=== PATIENT | male | born 1965 | race Two or more races ===

== ENCOUNTER 2024-07-31 08:28 | Inpatient (IN) | payer OTHER ==
[~2024-07-31] VITALS: Ht 185.4 cm; Wt 168.4 kg
[2024-07-31 10:27] LABS: Basophils # (auto) 0.1 10 ^3/uL (0-0.2); Basophils % (auto) 0.6 % (0.0-2.0); Eosinophils # (auto) 0.2 10 ^3/uL (0-0.8); Monocytes # (auto) 0.5 10 ^3/uL (0-1.3)
[2024-07-31 10:29] LABS: Eosinophils % (auto) 1.6 % (0.0-7.0); Hematocrit 36.3 % (41.0-53.0); Hemoglobin 11.8 g/dL (13.5-17.5); Lymphocytes # (auto) 1.9 10 ^3/uL (0.4-5.4); Lymphocytes % (auto) 19.6 % (10.0-50.0); Mean Corpuscular Hgb Conc. 32.6 g/dL (32.0-36.0); Mean Corpuscular Volume 79.8 fL (80.0-100.0); Monocytes % (auto) 4.8 % (0.0-12.0); Neutrophils # (auto) 7.1 10 ^3/uL (1.6-8.6); Neutrophils % (auto) 73.4 % (37.0-80.0); Platelet Count (auto) 439 10^3/uL (140-450); Red Blood Cells 4.54 10^6/uL (4.5-5.90); Red Cell Distribution Width 16.8 % (11.8-14.3); White Blood Cell 9.7 10^3/uL (4.4-10.8)
[2024-07-31 10:38] LABS: Calcium 9.5 mg/dL (8.7-10.4); Carbon Dioxide 23 mmol/L (20-31)
[2024-07-31 10:43] LABS: BUN/Creatinine Ratio 5.9 (10.0-20.0); Blood Urea Nitrogen 7 mg/dL (9-23); Glucose 115 mg/dL (74-106)
[2024-07-31] MEDS: CLINDAMYCIN 600MG IV 50 ML IV ONE (10:50)
[2024-07-31 11:00] VITALS: O2SAT 97
[2024-07-31 11:21] LABS: Anion Gap 9 (5-15); Chloride 110 mmol/L (98-107); Potassium 3.7 mmol/L (3.5-5.1); Sodium 142 mmol/L (136-145)
[2024-07-31] MEDS: PIPERACILLIN-TAZOB 3.375GM 100 ML IV ONE (11:30)
[2024-07-31] MEDS ORDERED: VANCOMYCIN PER PHARMACY 0 MG IV SCH (13:30)
[2024-07-31] MEDS ORDERED: ACETAMINOPHEN 325 MG TAB PO PRN (13:30)
[2024-07-31] MEDS ORDERED: PIPERACILLIN-TAZOB 3.375GM 100 ML IV SCH (13:30)
[2024-07-31] MEDS: HYDROmorphone HCL 2 MG/ML VL/or syr IV PRN (13:58)
[2024-07-31] MEDS: SODIUM CHLOR 0.9% PF (SALINE LOCK) 10ML VIAL/SYR IV SCH (14:05)
[2024-07-31] MEDS: ONDANSETRON HCL 4 MG/2 ML VIAL IV PRN (14:07)
[2024-07-31] MEDS: VANCOMYCIN 1GM/200ML PREMIX 200 ML IV SCH (14:44)
[2024-07-31] MEDS: MORPHINE SULFATE 4 MG/ML SYR/VIAL IV PRN (15:35)
[2024-07-31 15:46] LABS: Erythrocyte Sedimentation Rate 37 mm/hr (0-20)
[2024-07-31] MEDS: PIPERACILLIN-TAZOB 3.375GM 100 ML IV SCH (18:23)
[2024-07-31 22:00] VITALS: BP 117/52; PULSE 83; RESP 20; TEMP 98.1; O2SAT 95
[2024-08-01] VITALS (7 sets, daily range): BP systolic 135–148; BP diastolic 66–81; PULSE 78–91; RESP 18–21; TEMP 97.3–98; O2SAT 90–97
[2024-08-01] MEDS: VANCOMYCIN 1GM/200ML PREMIX 200 ML IV SCH (00:32)
[2024-08-01] MEDS ORDERED: HYDR-4072 PO (04:11)
[2024-08-01] MEDS ORDERED: METF-372 PO (04:11)
[2024-08-01] MEDS ORDERED: PROM25TA10 PO (04:11)
[2024-08-01] MEDS ORDERED: ATOR-507 PO (04:11)
[2024-08-01] MEDS ORDERED: TOPI25TA43 PO (04:11)
[2024-08-01] MEDS ORDERED: PROP80CA40 PO (04:11)
[2024-08-01] MEDS ORDERED: TAMS0.4C39 PO (04:13)
[2024-08-01] MEDS: PANTOPRAZOLE 40 MG/10 ML VIAL INJ IV SCH (09:09)
[2024-08-01] MEDS ORDERED: DEXTROSE (50%) 50ML SYRG IV PRN (09:30)
[2024-08-01] MEDS: HYDROcodone-ACET 5/325MG TAB PO PRN (09:32)
[2024-08-01 10:32] LABS: Urine Bacteria None Seen /hpf (None Seen); Urine WBC None Seen /hpf (0 - 3)
[2024-08-01 10:49] LABS: Urine Blood Negative /uL (Negative); Urine Clarity Clear (Clear); Urine Color Light-Yellow (Yellow); Urine Mucus FEW (None Seen); Urine Protein, UAD Negative (Negative); Urine Specific Gravity 1.013 (1.001-1.035); Urine Urobilinogen Normal (Negative); Urine pH 5.5 (5.0-9.0)
[2024-08-01 10:53] LABS: Amphetamine Screen, Urine Neg (NEGATIVE); Barbiturate Scree,Urine Neg (NEGATIVE); Benzodiazephine Screen, Urine Neg (NEGATIVE); Cocaine Screen, Urine Neg (NEGATIVE); Opiate Scree,Urine Neg (NEGATIVE)
[2024-08-01 10:54] LABS: Cannabinoid Screen, Urine Neg (NEGATIVE); Phencyclidine Screen, Urine Neg (NEGATIVE)
[2024-08-01 11:11] LABS: Basophils # (auto) 0.1 10 ^3/uL (0-0.2); Basophils % (auto) 0.8 % (0.0-2.0); Eosinophils # (auto) 0.2 10 ^3/uL (0-0.8); Hematocrit 36.9 % (41.0-53.0); Hemoglobin 12.2 g/dL (13.5-17.5); Lymphocytes % (auto) 20.2 % (10.0-50.0); Mean Corpuscular Hemoglobin 26.6 pg (28.0-32.0); Mean Corpuscular Hgb Conc. 33.1 g/dL (32.0-36.0); Mean Corpuscular Volume 80.4 fL (80.0-100.0); Monocytes # (auto) 0.6 10 ^3/uL (0-1.3); Monocytes % (auto) 6.5 % (0.0-12.0); Neutrophils % (auto) 70.5 % (37.0-80.0); Platelet Count (auto) 419 10^3/uL (140-450); Red Blood Cells 4.59 10^6/uL (4.5-5.90); Red Cell Distribution Width 16.8 % (11.8-14.3)
[2024-08-01 11:19] LABS: INR 1.12 (0.9-1.15); Partial Thromboplastin Time 31.2 SEC (24.5-34.5); Prothrombin Time 11.8 sec (9.3-11.8)
[2024-08-01 11:27] LABS: Alanine Aminotransferase 33 U/L (7-40); Albumin 4.4 g/dL (3.2-4.8); Alkaline Phosphatase 150 U/L (46-116); Anion Gap 10 (5-15); Aspartate Aminotransferase 19 U/L (13-40); BUN/Creatinine Ratio 6.3 (10.0-20.0); Bilirubin, Direct 0.3 mg/dL (<0.3); Bilirubin, Total 0.9 mg/dL (0.2-1.0); Blood Urea Nitrogen 8 mg/dL (9-23); Calcium 9.8 mg/dL (8.7-10.4); Carbon Dioxide 24 mmol/L (20-31); Chloride 109 mmol/L (98-107); Glucose 121 mg/dL (74-106); Potassium 3.8 mmol/L (3.5-5.1); Sodium 143 mmol/L (136-145)
[2024-08-01] MEDS: CLINDAMYCIN 600MG IV 50 ML IV SCH (11:39)
[2024-08-01] MEDS: POTASSIUM EFFERVESENT TAB 25 MEQ PO ONE (11:40)
[2024-08-01] MEDS: InsuLIN REG 1unit/0.01ml Soln (100units/ml) SC SCH (11:51)
[2024-08-01] MEDS ORDERED: hydrALAZINE HCL 20 MG/ML VL IV PRN (12:00)
[2024-08-01] MEDS: ACCU-CHEK COMFORT CURVE STRIP VI SCH (12:00)
[2024-08-01] MEDS ORDERED: VANCOMYCIN PER PHARMACY 0 MG IV SCH (17:45)
[2024-08-01] MEDS: TOPIRAMATE 25 MG TAB PO SCH (18:08)
[2024-08-01] MEDS: ENOXAPARIN SOD 40 MG/0.4 ML SYRINGE SC ONE (18:08)
[2024-08-01] MEDS ORDERED: VANCOMYCIN 750mg/150ml 150 ML IV SCH (18:30)
[2024-08-01] MEDS: VANCOMYCIN 750mg/150ml 150 ML IV SCH (20:53)
[2024-08-01] MEDS: TRIAMCINOLONE ACET 0.1% TOPICAL CREAM 15GM TOP SCH (21:42)
[2024-08-01] MEDS: ATORVASTATIN 20 MG TAB PO SCH (21:46)
[2024-08-01] MEDS ORDERED: CEFEPIME 1GM/ 50ML 50 ML IV SCH (22:00)
[2024-08-01] MEDS: CEFEPIME 2GM/50ML NS 50 ML IV SCH (23:04)
[2024-08-02] VITALS (8 sets, daily range): BP systolic 107–131; BP diastolic 56–76; PULSE 84–92; RESP 19–20; TEMP 97.5–98.8; O2SAT 94–98
[2024-08-02] MEDS: DOCUSATE SOD 100 MG CAP PO PRN (00:42)
[2024-08-02] MEDS: ENOXAPARIN SOD 40 MG/0.4 ML SYRINGE SC SCH (09:27)
[2024-08-02] MEDS: PROPRANOLOL HCL 80 MG PO SCH (10:00)
[2024-08-02 10:28] LABS: Chloride 109 mmol/L (98-107); Potassium 4.7 mmol/L (3.5-5.1); Sodium 141 mmol/L (136-145)
[2024-08-02 10:29] LABS: Anion Gap 9 (5-15); Carbon Dioxide 23 mmol/L (20-31)
[2024-08-02 10:30] LABS: Basophils # (auto) 0.1 10 ^3/uL (0-0.2); Calcium 9.4 mg/dL (8.7-10.4); Eosinophils # (auto) 0.3 10 ^3/uL (0-0.8); Eosinophils % (auto) 3.1 % (0.0-7.0); Hemoglobin 12.3 g/dL (13.5-17.5); Lymphocytes # (auto) 1.8 10 ^3/uL (0.4-5.4); Monocytes # (auto) 0.6 10 ^3/uL (0-1.3); Neutrophils # (auto) 7.4 10 ^3/uL (1.6-8.6); White Blood Cell 10.2 10^3/uL (4.4-10.8)
[2024-08-02 10:32] LABS: Basophils % (auto) 0.7 % (0.0-2.0); Hematocrit 37.4 % (41.0-53.0); Mean Corpuscular Hemoglobin 26.6 pg (28.0-32.0); Mean Corpuscular Volume 80.4 fL (80.0-100.0); Monocytes % (auto) 5.7 % (0.0-12.0); Neutrophils % (auto) 72.5 % (37.0-80.0); Platelet Count (auto) 428 10^3/uL (140-450); Red Blood Cells 4.65 10^6/uL (4.5-5.90); Red Cell Distribution Width 16.7 % (11.8-14.3)
[2024-08-02 10:34] LABS: Glucose 136 mg/dL (74-106)
[2024-08-02 10:35] LABS: Blood Urea Nitrogen 9 mg/dL (9-23)
[2024-08-02] MEDS: TAMSULOSIN HYDROCHLORIDE 0.4 MG CAP PO SCH (19:37)
[2024-08-03] VITALS (8 sets, daily range): BP systolic 117–148; BP diastolic 52–78; PULSE 84–94; RESP 17–20; TEMP 97.6–98.4; O2SAT 90–97
[2024-08-03 06:41] LABS: Basophils # (auto) 0.1 10 ^3/uL (0-0.2); Basophils % (auto) 0.6 % (0.0-2.0); Eosinophils # (auto) 0.3 10 ^3/uL (0-0.8); Lymphocytes # (auto) 2.4 10 ^3/uL (0.4-5.4)
[2024-08-03 06:42] LABS: Eosinophils % (auto) 3.2 % (0.0-7.0); Lymphocytes % (auto) 24.8 % (10.0-50.0); Mean Corpuscular Hemoglobin 25.9 pg (28.0-32.0); Mean Corpuscular Hgb Conc. 32.4 g/dL (32.0-36.0); Mean Corpuscular Volume 79.9 fL (80.0-100.0); Monocytes # (auto) 0.7 10 ^3/uL (0-1.3); Monocytes % (auto) 6.9 % (0.0-12.0); Neutrophils # (auto) 6.1 10 ^3/uL (1.6-8.6); Neutrophils % (auto) 64.5 % (37.0-80.0); Platelet Count (auto) 441 10^3/uL (140-450); Red Blood Cells 4.63 10^6/uL (4.5-5.90); Red Cell Distribution Width 17.2 % (11.8-14.3); White Blood Cell 9.5 10^3/uL (4.4-10.8)
[2024-08-03 06:54] LABS: Chloride 108 mmol/L (98-107); Potassium 3.9 mmol/L (3.5-5.1); Sodium 140 mmol/L (136-145)
[2024-08-03 06:55] LABS: Anion Gap 7 (5-15); Calcium 9.6 mg/dL (8.7-10.4); Carbon Dioxide 25 mmol/L (20-31)
[2024-08-03 07:00] LABS: BUN/Creatinine Ratio 7.8 (10.0-20.0); Blood Urea Nitrogen 9 mg/dL (9-23); Glucose 104 mg/dL (74-106); Magnesium 2.2 mg/dL (1.6-2.6)
[2024-08-03] MEDS: IOHEXOL 350 MG/ML 100ML IJ ONE (14:10)
[2024-08-03] MEDS: ACETAMINOPHEN 500 MG TAB PO PRN (14:43)
[2024-08-04] VITALS (7 sets, daily range): BP systolic 116–152; BP diastolic 56–90; PULSE 76–89; RESP 17–20; TEMP 97.6–98; O2SAT 93–98
[2024-08-04] MEDS ORDERED: GABA-1308 PO (15:38)
[2024-08-04] MEDS ORDERED: BACDST PO (15:38)
[2024-08-04] MEDS ORDERED: ACET650T12 PO (15:38)
[2024-08-04] MEDS ORDERED: VANCOMYCIN 500 MG in D5W 5% 100 ML IV SCH (20:00)
== END 2024-08-04 17:55 | disposition home health service (06) | DRG 638 ==
LOC: ER 08:28 → OVERFLOW 13:26 → EAST 08-01 03:10
PROVIDERS: ADMIT Internal Medicine; ATTEND Internal Medicine
DX: E11.621 Type 2 diabetes mellitus with foot ulcer (principal); L03.115 Cellulitis of right lower limb; Z68.42 Body mass index [BMI] 45.0-49.9, adult; E11.628 Type 2 diabetes mellitus with other skin complications; E78.5 Hyperlipidemia, unspecified; E11.22 Type 2 diabetes mellitus with diabetic chronic kidney disease; N18.9 Chronic kidney disease, unspecified; I12.9 Hypertensive chronic kidney disease with stage 1 through stage 4 chronic kidney disease, or unspecified chronic kidney disease; N40.0 Benign prostatic hyperplasia without lower urinary tract symptoms; E66.01 Morbid (severe) obesity due to excess calories; G43.909 Migraine, unspecified, not intractable, without status migrainosus; G47.33 Obstructive sleep apnea (adult) (pediatric); M79.3 Panniculitis, unspecified; L30.8 Other specified dermatitis; I87.2 Venous insufficiency (chronic) (peripheral); L97.519 Non-pressure chronic ulcer of other part of right foot with unspecified severity; Z79.4 Long term (current) use of insulin; Z79.899 Other long term (current) drug therapy
CPT/HCPCS: 36415; 73630; 73700; 73706; 73718; 80048; 80053; 80076; 80202; 80307; 81001; 82043; 82306; 82565; 82607; 82962; 83036; 83735; 83880; 84443; 85025; 85610; 85652; 85730; 86141; 87040; 87077; 87081; 87186; 87205; 93925; 93970; 96365; 96375; 99291; G0378; J0692; J2405; J2470; J2543; J3490; J7060

== ENCOUNTER 2024-08-30 05:26 | Inpatient (IN) | payer OTHER ==
[~2024-08-30] VITALS: Ht 185.4 cm; Wt 165.1 kg
[~2024-08-30 05:26] MED LIST: ACET650T12 PO; ATOR-507 PO; BACDST PO; GABA-1308 PO; HYDR-4072 PO; METF-372 PO; PROM25TA10 PO; PROP80CA40 PO; TAMS0.4C39 PO; TOPI25TA43 PO
[2024-08-30] MEDS: VANCOMYCIN 1GM/200ML PREMIX 200 ML IV ONE (06:15)
--- NOTE | 2024-08-30 06:22 | ED.PDOC ---
History of Present Illness HPI Comments 58Y M with PMHx DM, HLD, sleep apnea, prostate disease, and migraines presents to ED for chief complaint wound check. Pt has rt foot diabetic ulcer and describes pain as stabbing. Pt is also experiencing nausea but is unsure if it is caused by the rt foot pain or his migraines. Pt denies fever, vomiting, and diarrhea. Pt was last discharged from [facility] on 08/04/2024 for dx diabetic foot ulcer with cellulitis. Pt was sent home with home health nurse but the wound is not healing and is now leaking per pt. Pt is an ex-smoker. Pt denies alcohol and illicit drug use. No known allergies. Chief Complaint: Wound Check Time Seen by MD: 06:10 Reviewed Notes: Medications, Allergies Allergies: Coded Allergies: NO KNOWN ALLERGIES (Unverified , 07/31/24) Home Meds Active Scripts Acetaminophen (Acetaminophen Er) 650 Mg Tab, 650 MG PO QIDP PRN for 7 Days, #28 TAB Prov:KETTY MERRITT RESIDENT 08/04/24 Gabapentin (Gabapentin) 100 Mg Cap, 1 CAP PO TID, #90 CAP 2 Refills Prov:KETTY MERRITT RESIDENT 08/04/24 Sulfamethoxazole W/Trimethopri (Bactrim Ds Tablet) 1 Tab Tb, 1 TAB PO BID for 7 Days, #14 TAB Prov:KETTY MERRITT RESIDENT 08/04/24 Reported Medications Tamsulosin Hcl (Tamsulosin Hcl) 0.4 Mg Cap, 0.4 MG PO DAILY, CAP 08/01/24 Promethazine Hcl (Promethazine Hcl) 25 Mg Tab, 25 MG PO PRN for NAUSEA / VOMITING, TAB 08/01/24 Hydrocodone-Acetaminophen (Hydrocodone/Acetaminophen 10-325 mg) 1 Tab Tab, 1 TAB PO BID, TAB 08/01/24 Topiramate (Topamax) 25 Mg Tab, 25 MG PO DAILY, TAB 08/01/24 Propranolol Hcl (Inderal La) 80 Mg Cap, 160 MG PO DAILY, CAP 08/01/24 Atorvastatin Calcium (Lipitor) 40 Mg Tab, 40 MG PO DAILY, TAB 08/01/24 Metformin Hydrochloride (Metformin Hcl) 1,000 Mg Tab, 1000 MG PO DAILY, TAB 08/01/24 Information Source: Patient Mode of Arrival: Ambulatory Severity: Moderate Timing: Months Duration: Since onset Past Medical History PAST MEDICAL HISTORY: DM, High Lipids Past Medical History (Other): sleep apnea, prostate disease, migraines Surgical History: Denies all surgeries Family History Family History: Unknown Social History Smoker: Non-Smoker, Quit Greater Than 1 Year Alcohol: Denies ETOH Use Drugs: Denies Drug Use Lives In: Home Constitutional: denies: chills, diaphoresis, fatigue, fever, malaise, sweats, weakness, others EENTM: denies: blurred vision, double vision, ear bleeding, ear discharge, ear drainage, ear pain, ear ringing, eye pain, eye redness, hearing loss, mouth pain, mouth swelling, nasal discharge, nose bleeding, nose congestion, nose pain, photophobia, tearing, throat pain, throat swelling, voice changes, others Respiratory: denies: cough, hemoptysis, orthopnea, SOB at rest, shortness of breath, SOB with excertion, stridor, wheezing, others Cardiovascular: denies: chest pain, dizzy spells, diaphoresis, Dyspnea on exertion, edema, irregular heart beat, left arm pain, lightheadedness, palpitations, PND, syncope, others Gastrointestinal: reports: nausea; denies: abdomen distended, abdominal pain, blood streaked bowels, constipated, diarrhea, dysphagia, difficulty swallowing, hematemesis, melena, poor appetite, poor fluid intake, rectal bleeding, rectal pain, vomiting, others Genitourinary: denies: burning, dysuria, flank pain, frequency, hematuria, incontinence, penile discharge, penile sore, pain, testicle pain, testicle swelling, urgency, others Neurological: denies: dizziness, fainting, headache, left sided numbness, left sided weakness, numbness, paresthesia, pre-existing deficit, right sided numbness, right sided weakness, seizure, speech problems, tingling, tremors, weakness, others Musculoskeletal: reports: joint pain (rt foot); denies: back pain, gout, joint swelling, muscle pain, muscle stiffness, neck pain, others Integumetry: denies: bruises, change in color, change in hair/nails, dryness, laceration, lesions, lumps, rash, wounds, others Allergic/Immunocompromised: denies: Difficulty Healing, Frequent Infections, Hives, Itching, others Hematologic/Lymphatic: denies: anemia, blood clots, easy bleeding, easy bruising, swollen glands, others Endocrine: denies: excessive hunger, excessive sweating, excessive thirst, excessive urination, flushing, intolerance to cold, intolerance to heat, unexplained weight gain, unexplained weight loss, others Psychiatric: denies: anxiety, bipolar disorder, depression, hopeless, panic disorder, schizophrenia, sleepless, suicidal, others All Other Systems: Reviewed and Negative Physical Exam General Appearance: No Apparent Distress, Normal HEENT: Normal ENT Inspection, Pharynx Normal, TMs Normal Neck: Full Range of Motion, Non-Tender, Normal, Normal Inspection Respiratory: Chest Non-Tender, Lungs Clear, No Accessory Muscle Use, No Respiratory Distress, Normal Breath Sounds Cardiovascular: No Edema, No JVD, No Murmur, No Gallop, Normal Peripheral Pulses, Regular Rate/Rhythm Breast Exam: Deferred Gastrointestinal: No Organomegaly, Non Tender, No Pulsatile Mass, Normal Bowel Sounds, Soft Genitalia: Deferred Pelvic: Deferred Rectal: Deferred Extremities: No calf tenderness, Normal capillary refill, Normal range of motion, Non-tender, No pedal edema Musculoskeletal : Apperance: Normal Neurologic: Alert, 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 Was a procedure done?: No Differential Dx Considerations may include: Cellulitis, osteomyelitis X-Ray, Labs, Meds, VS Vital Signs Date Time Temp Pulse Resp B/P (MAP) Pulse Ox O2 Delivery O2 Flow Rate FiO2 08/30/24 07:23 82 18 94 Room Air* 0 21 08/30/24 07:23 98.7 76 18 142/77 (98) 94 98.7 08/30/24 05:30 97.9 76 18 142/72 (95) 95 Lab Test 08/30/24 06:15 Range/Units White Blood Count 10.0 4.4-10.8 10^3/uL Red Blood Count 4.87 4.5-5.90 10^6/uL Hemoglobin 12.8 L 13.5-17.5 g/dL Hematocrit 39.2 L 41.0-53.0 % Mean Corpuscular Volume 80.5 80.0-100.0 fL Mean Corpuscular Hemoglobin 26.3 L 28.0-32.0 pg Mean Corpuscular Hemoglobin Concent 32.6 32.0-36.0 g/dL Red Cell Distribution Width 17.4 H 11.8-14.3 % Platelet Count 375 140-450 10^3/uL Mean Platelet Volume 7.7 6.9-10.8 fL Neutrophils (%) (Auto) 60.8 37.0-80.0 % Lymphocytes (%) (Auto) 27.1 10.0-50.0 % Monocytes (%) (Auto) 5.8 0.0-12.0 % Eosinophils (%) (Auto) 4.9 0.0-7.0 % Basophils (%) (Auto) 1.4 0.0-2.0 % Neutrophils # (Auto) 6.1 1.6-8.6 10 ^3/uL Lymphocytes # (Auto) 2.7 0.4-5.4 10 ^3/uL Monocytes # (Auto) 0.6 0-1.3 10 ^3/uL Eosinophils # (Auto) 0.5 0-0.8 10 ^3/uL Basophils # (Auto) 0.1 0-0.2 10 ^3/uL Nucleated Red Blood Cells 0.1 % Sodium Level 139 136-145 mmol/L Potassium Level 3.7 3.5-5.1 mmol/L Chloride Level 108 H 98-107 mmol/L Carbon Dioxide Level 20 20-31 mmol/L Anion Gap 11 5-15 Blood Urea Nitrogen 6 L 9-23 mg/dL Creatinine 1.16 0.700-1.30 mg/dL Glomerular Filtration Rate Calc 73 >90 mL/min BUN/Creatinine Ratio 5.2 L 10.0-20.0 Serum Glucose 138 H 74-106 mg/dL Lactic Acid Level 1.8 0.4-2.0 mmol/L Calcium Level 9.5 8.7-10.4 mg/dL [address] [address] Ph: [phone] DIAGNOSTIC IMAGING Diagnostic Imaging Report : [id number] Signed PATIENT: YADI TRINIDAD ACCT: [id number] UNIT: [id number] : 1965 LOC: ER ROOM / BED: / AGE / SEX: 58 / M ADM STATUS: REG ER SERVICE 0 ORDERING PHYSICIAN: RIMA RAMIREZ MD PROCEDURE(s): RFOOT - R FOOT 3 VIEW XRAY REASON: chronic wound with worsening cellulitis ORDER NUMBER(s): [id number], ACCESSION NUMBER(s): [id number] EXAM: XR Right Foot Complete, 3 or More Views CLINICAL INDICATION: chronic wound with worsening cellulitis TECHNIQUE: Frontal, lateral and oblique views of the right foot. COMPARISON: XY R FOOT 3 VIEW XRAY on DOS: 07/31/24 FINDINGS: BONES/JOINTS: Unremarkable. No acute fracture. No dislocation. No osteomyelitis. SOFT TISSUES: Soft tissue swelling. No radiopaque foreign body. OTHER FINDINGS: . . IMPRESSION: No acute fracture. HS:Y ATED BY: STEPHY LAKHANI MD DICTATED DATE/TIME: 08/30/24653 SIGNED BY: STEPHY LAKHANI MD SIGNED DATE/TIME: 08/30/24653 CC: Time of 1ST Reevaluation: 06:40 Reevaluation 1ST: Unchanged Patient Education/Counseling: Diagnosis, Treatment Family Education/Counseling: No Family Present Departure 1 Departure Time of Disposition: 07:41 (Patient with a worsening cellulitis failed outpatient antibiotics and wound care treatment. I reviewed the patient's CBC and BNP which were benign. However a personally reviewed and interpreted patient's foot x-ray and it is not concerning for osteomyelitis at this time. 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 Electronically submitted by Soraya Fox ([email or web address] I personally scribed for RIMA RAMIREZ MD ([email or web address]) on 08/30/24 at 07:08. Electronically submitted by Soraya Fox ([email or web address]). RIMA RAMIREZ MD Aug 30, 2024 06:21
[2024-08-30 06:52] LABS: Basophils # (auto) 0.1 10 ^3/uL (0-0.2); Eosinophils # (auto) 0.5 10 ^3/uL (0-0.8); Monocytes # (auto) 0.6 10 ^3/uL (0-1.3); Neutrophils # (auto) 6.1 10 ^3/uL (1.6-8.6)
[2024-08-30 06:54] LABS: Basophils % (auto) 1.4 % (0.0-2.0); Eosinophils % (auto) 4.9 % (0.0-7.0); Hematocrit 39.2 % (41.0-53.0); Hemoglobin 12.8 g/dL (13.5-17.5); Lymphocytes # (auto) 2.7 10 ^3/uL (0.4-5.4); Lymphocytes % (auto) 27.1 % (10.0-50.0); Mean Corpuscular Hemoglobin 26.3 pg (28.0-32.0); Mean Corpuscular Hgb Conc. 32.6 g/dL (32.0-36.0); Mean Corpuscular Volume 80.5 fL (80.0-100.0); Monocytes % (auto) 5.8 % (0.0-12.0); Neutrophils % (auto) 60.8 % (37.0-80.0); Nucleated Red Blood Cells % 0.1 %; Platelet Count (auto) 375 10^3/uL (140-450); Red Blood Cells 4.87 10^6/uL (4.5-5.90); Red Cell Distribution Width 17.4 % (11.8-14.3)
--- NOTE | 2024-08-30 06:57 | DVH ---
EXAM: XR Right Foot Complete, 3 or More Views CLINICAL INDICATION: chronic wound with worsening cellulitis TECHNIQUE: Frontal, lateral and oblique views of the right foot. COMPARISON: XY R FOOT 3 VIEW XRAY on DOS: 07/31/24 FINDINGS: BONES/JOINTS: Unremarkable. No acute fracture. No dislocation. No osteomyelitis. SOFT TISSUES: Soft tissue swelling. No radiopaque foreign body. OTHER FINDINGS: . . IMPRESSION: No acute fracture. HS:Y
[2024-08-30 07:01] LABS: Potassium 3.7 mmol/L (3.5-5.1); Sodium 139 mmol/L (136-145)
[2024-08-30 07:02] LABS: Anion Gap 11 (5-15); Calcium 9.5 mg/dL (8.7-10.4); Carbon Dioxide 20 mmol/L (20-31)
[2024-08-30 07:07] LABS: BUN/Creatinine Ratio 5.2 (10.0-20.0)
[2024-08-30 07:08] LABS: Blood Urea Nitrogen 6 mg/dL (9-23); Chloride 108 mmol/L (98-107); Glucose 138 mg/dL (74-106)
[2024-08-30 07:23] VITALS: PULSE 82; RESP 18; O2SAT 94
[2024-08-30] MEDS: SODIUM CHLORIDE 0.9% 1,000 ML IV ONE (07:50)
[2024-08-30] MEDS: MORPHINE SULFATE 4 MG/ML SYR/VIAL IV ONE (07:50)
[2024-08-30] MEDS: ONDANSETRON HCL 4 MG/2 ML VIAL IV ONE (07:51)
[2024-08-30] MEDS: SODIUM CHLORIDE 0.9% 1,000 ML IV SCH (10:15)
[2024-08-30] MEDS ORDERED: ACETAMINOPHEN 325 MG TAB PO PRN (10:15)
[2024-08-30] MEDS ORDERED: HYDROcodone-ACET 5/325MG TAB PO PRN (10:15)
[2024-08-30] MEDS ORDERED: MAALOX PLUS or MAALOX 30 ML PO PRN (10:15)
[2024-08-30] MEDS ORDERED: DEXTROSE (50%) 50ML SYRG IV PRN (10:15)
[2024-08-30] MEDS ORDERED: DOCUSATE SOD 100 MG CAP PO PRN (10:15)
[2024-08-30] MEDS ORDERED: VANCOMYCIN PER PHARMACY 0 MG IV SCH (10:15)
[2024-08-30] MEDS ORDERED: LORazepam 0.5 MG TAB PO PRN (10:15)
[2024-08-30] MEDS ORDERED: TEMAZEPAM 15 MG CAP PO PRN (10:15)
--- NOTE | 2024-08-30 10:15 | DVHHP2 ---
History of Present Illness Reason for Visit: diabetic foot ulcer History of Present Illness 58-year-old morbidly obese patient with a past medical history of diabetes hypertension hyperlipidemia diabetes sleep apnea and prostate disease comes to the ED for complaint of wound on his foot patient has a longstanding right foot diabetic ulcer patient states that he is having severe pain in the foot and it continues to get worse the pain has not been alleviated last time the patient was here while in the beginning of August for the same issue for the cellulitis of the diabetic foot wound patient was sent home with home healthcare and supposed to follow up with wound care but states that his wound continues to leak and continues to have pain patient was recommended for evaluation of inpatient treatment and management Cardiovascular: HTN, hyperipidemia Endocrine: Diabetes Review of Systems Constitutional: Yes: Weakness; No: Fever, Chills, Sweats, Malaise, Other Eyes: No: Pain, Vision change, Conjunctivae inflammation, Eyelid inflammation, Other, Redness ENT: No: Ear pain, Ear discharge, Nose pain, Nose discharge, Nose congestion, Mouth pain, Mouth swelling, Throat pain, Throat swelling, Other Respiratory: No: Cough, Dry, Shortness of breath, SOB with excertion, Wheezing, Hemoptysis, Pleuritic Pain, Sputum, Wheezing, Other Cardiovascular: No: Chest Pain, Palpitations, Orthopnea, Paroxysmal Noc. Dyspnea, Edema, Lt Headedness, Other Gastrointestinal: No: Nausea, Vomiting, Abdominal Pain, Diarrhea, Constipation, Melena, Hematochezia, Other Genitourinary: No Dysuria, No Frequency, No Incontinence, No Hematuria, No R etention, No Other Musculoskeletal: leg pain, foot pain; No: other, neck pain, shoulder pain, arm pain, back pain, hand pain Skin: No: Rash, Lesions, Jaundice, Bruising, Other Neurological: No: Weakness, Numbness, Incoordination, Change in speech, Confusion, Seizures, Other Allergies: Coded Allergies: NO KNOWN ALLERGIES (Unverified , 07/31/24) Exam Vital Signs Vital Signs Date Time Temp Pulse Resp B/P (MAP) Pulse Ox O2 Delivery O2 Flow Rate FiO2 08/30/24 08:16 72 18 130/79 08/30/24 07:23 94 Room Air* 0 21 08/30/24 07:23 98.7 98.7 General Appearance: Alert, Oriented X3, Cooperative HEENT: Atraumatic, PERRLA, EOMI Respiratory: Clear to auscultation, Normal air movement Cardiovascular: Regular rate, Normal S1, Normal S2 Abdominal: Normal bowel sounds, Soft, No tenderness Extremities: No clubbing, No cyanosis, No edema Skin: No rashes, No breakdown Neuro: Normal gait, Normal speech Psych/Mental Status: Mood NL Labs/Xrays Labs Test 08/30/24 06:15 Range/Units White Blood Count 10.0 4.4-10.8 10^3/uL Red Blood Count 4.87 4.5-5.90 10^6/uL Hemoglobin 12.8 L 13.5-17.5 g/dL Hematocrit 39.2 L 41.0-53.0 % Mean Corpuscular Volume 80.5 80.0-100.0 fL Mean Corpuscular Hemoglobin 26.3 L 28.0-32.0 pg Mean Corpuscular Hemoglobin Concent 32.6 32.0-36.0 g/dL Red Cell Distribution Width 17.4 H 11.8-14.3 % Platelet Count 375 140-450 10^3/uL Mean Platelet Volume 7.7 6.9-10.8 fL Neutrophils (%) (Auto) 60.8 37.0-80.0 % Lymphocytes (%) (Auto) 27.1 10.0-50.0 % Monocytes (%) (Auto) 5.8 0.0-12.0 % Eosinophils (%) (Auto) 4.9 0.0-7.0 % Basophils (%) (Auto) 1.4 0.0-2.0 % Neutrophils # (Auto) 6.1 1.6-8.6 10 ^3/uL Lymphocytes # (Auto) 2.7 0.4-5.4 10 ^3/uL Monocytes # (Auto) 0.6 0-1.3 10 ^3/uL Eosinophils # (Auto) 0.5 0-0.8 10 ^3/uL Basophils # (Auto) 0.1 0-0.2 10 ^3/uL Nucleated Red Blood Cells 0.1 % Sodium Level 139 136-145 mmol/L Potassium Level 3.7 3.5-5.1 mmol/L Chloride Level 108 H 98-107 mmol/L Carbon Dioxide Level 20 20-31 mmol/L Anion Gap 11 5-15 Blood Urea Nitrogen 6 L 9-23 mg/dL Creatinine 1.16 0.700-1.30 mg/dL Glomerular Filtration Rate Calc 73 >90 mL/min BUN/Creatinine Ratio 5.2 L 10.0-20.0 Serum Glucose 138 H 74-106 mg/dL Lactic Acid Level 1.8 0.4-2.0 mmol/L Calcium Level 9.5 8.7-10.4 mg/dL Assessment/Plan Assessment/Plan Admit to [facility] Diabetic nephropathy uncontrolled with diabetic foot ulcer IV hydration IV antibiotics Tight glucose control Podiatry evaluation History of hyperlipidemia hypertension Continue with patient's home medications Patient is severely morbidly obese BMI greater than 47 Plan discussed with: Patient My Orders Orders - JAEL PRATER MD Procedure Category Date Status Time Vancomycin Per PHA 08/30/24 Verified Pharmacy 10:15 Zosyn Extended PHA 08/30/24 Verified Infusion 10:15 * Wound Consult CONS 08/30/24 Verified *Podiatry Consult CONS 08/30/24 Verified [place] 10:06 Gabapentin Capsule PHA 08/30/24 Verified (Neurontin Capsule) 14:00 Hydrocodone-Acet PHA 08/30/24 Verified 10/325mg Tab ([place] 22:00 Tamsulosin PHA 08/31/24 Verified Hydrochloride (Flomax) 10:00 Problem List: (1) Diabetic foot infection (2) Cellulitis of foot, right (3) Diabetes mellitus (4) Cellulitis Date of Service: Aug 30, 2024 Billing Provider: JAEL PRATER MD Common Visit Codes: [id number] INP/OBS CARE (HIGH) JAEL PRATER MD Aug 30, 2024 10:15
[2024-08-30] MEDS: PIPERACILLIN-TAZOB 3.375GM 100 ML IV SCH (10:58)
[2024-08-30 11:08] VITALS: BP 98/53; PULSE 80; RESP 16; TEMP 98.7; O2SAT 95
[2024-08-30] MEDS: InsuLIN REG 1unit/0.01ml Soln (100units/ml) SC SCH (12:00)
[2024-08-30] MEDS: ACCU-CHEK COMFORT CURVE STRIP VI SCH (12:11)
[2024-08-30] MEDS: GABAPENTIN 100 MG CAP PO SCH (14:27)
[2024-08-30] MEDS: VANCOMYCIN 1GM/200ML PREMIX 200 ML IV SCH (14:28)
[2024-08-30] MEDS: MORPHINE SULFATE INJ 2 MG/ml SYRG IV PRN (14:39)
[2024-08-30] MEDS: ONDANSETRON HCL 4 MG/2 ML VIAL IV PRN (14:40)
[2024-08-30 15:06] VITALS: BP 122/69; PULSE 84; RESP 16; TEMP 98.8; O2SAT 95
[2024-08-30 15:31] VITALS: BP 122/69; PULSE 84; RESP 17; TEMP 98.7; O2SAT 95
[2024-08-30] MEDS: Juven Orange Powder PACKET 27.5gm PO SCH (18:00)
[2024-08-30 18:35] VITALS: BP 119/52; PULSE 74; TEMP 98.7; O2SAT 94
[2024-08-30 20:00] VITALS: PULSE 69; RESP 18; O2SAT 94
[2024-08-30] MEDS: HYDROcodone-ACET 10/325MG TAB PO SCH (22:00)
[2024-08-31 05:48] VITALS: BP 146/68; PULSE 76; RESP 19; TEMP 98.2; O2SAT 95
[2024-08-31] MEDS: GABAPENTIN 300 MG CAP ONE (06:22)
[2024-08-31 07:38] LABS: Basophils # (auto) 0.1 10 ^3/uL (0-0.2); Eosinophils # (auto) 0.6 10 ^3/uL (0-0.8); Eosinophils % (auto) 5.9 % (0.0-7.0); Lymphocytes # (auto) 2.1 10 ^3/uL (0.4-5.4); Monocytes # (auto) 0.7 10 ^3/uL (0-1.3)
[2024-08-31 07:40] LABS: Hemoglobin 12.8 g/dL (13.5-17.5); Lymphocytes % (auto) 21.4 % (10.0-50.0); Mean Corpuscular Hemoglobin 26.3 pg (28.0-32.0); Mean Corpuscular Hgb Conc. 32.8 g/dL (32.0-36.0); Mean Corpuscular Volume 80.2 fL (80.0-100.0); Monocytes % (auto) 7.2 % (0.0-12.0); Neutrophils # (auto) 6.3 10 ^3/uL (1.6-8.6); Neutrophils % (auto) 64.5 % (37.0-80.0); Platelet Count (auto) 368 10^3/uL (140-450); Red Blood Cells 4.86 10^6/uL (4.5-5.90); Red Cell Distribution Width 17.7 % (11.8-14.3); White Blood Cell 9.8 10^3/uL (4.4-10.8)
[2024-08-31 07:48] LABS: Sodium 141 mmol/L (136-145)
[2024-08-31 07:49] LABS: Anion Gap 9 (5-15); Carbon Dioxide 24 mmol/L (20-31)
[2024-08-31 07:50] LABS: Calcium 9.8 mg/dL (8.7-10.4)
[2024-08-31 07:54] LABS: BUN/Creatinine Ratio 7.8 (10.0-20.0)
[2024-08-31 07:59] LABS: Blood Urea Nitrogen 9 mg/dL (9-23); Chloride 108 mmol/L (98-107); Glucose 122 mg/dL (74-106)
[2024-08-31] MEDS: Juven Fruit Punch Powder PACKET 28.8gm PO SCH (08:00)
[2024-08-31] MEDS: TOPIRAMATE 25 MG TAB PO SCH (10:09)
[2024-08-31] MEDS: ATORVASTATIN 20 MG TAB PO SCH (10:09)
[2024-08-31] MEDS: TAMSULOSIN HYDROCHLORIDE 0.4 MG CAP PO SCH (10:09)
--- NOTE | 2024-08-31 13:17 | DVHPN2 ---
Reviewed: Care Plan, H&P, Labs, Medications, Previous Orders, Radiology Changes from previous H/P or p: No Changes Eyes: No Pain, No Vision change, No Conjunctivae inflammation, No Eyelid inflammation, No Other, No Redness ENT: No Ear pain, No Ear discharge, No Nose pain, No Nose discharge, No Nose congestion, No Mouth pain, No Mouth swelling, No Throat pain, No Throat swelling, No Other Cardiovascular: No Chest Pain, No Palpitations, No Orthopnea, No Paroxysmal Noc. Dyspnea, No Edema, No Lt Headedness, No Other Respiratory: No Cough, No Dry, No Shortness of breath, No SOB with excertion, No Wheezing, No Hemoptysis, No Pleuritic Pain, No Sputum, No Other Gastrointestinal: No Nausea, No Vomiting, No Abdominal Pain, No Diarrhea, No Constipation, No Melena, No Hematochezia, No Other Genitourinary: No Dysuria, No Frequency, No Incontinence, No Hematuria, No Retention, No Other Musculoskeletal: No other, No neck pain, No shoulder pain, No arm pain, No back pain, No hand pain; leg pain, foot pain Skin: No Rash, No Lesions, No Jaundice, No Bruising, No Other Objective Vitals Vital Signs Date Time Temp Pulse Resp B/P (MAP) Pulse Ox O2 Delivery O2 Flow Rate FiO2 08/31/24 10:32 86 16 139/75 08/31/24 10:03 97.6 92 97.6 08/30/24 20:26 Room Air 08/30/24 20:00 0 21 Intake/Output Intake and Output 08/31/24 07:00 Intake Total 1500 ml Balance 1500 ml Intake IV Total 1500 ml Medications Current Medications Medications Dose Ordered Sig/Christen Route Start Time Stop Time Status Last Admin Dose Admin Vancomycin HCl 0 ml @ 0 mls/hr UD IV 08/30/24 10:15 Piperacillin Sod/ Tazobactam Sod 100 ml @ 25 mls/hr Q6H IV 08/30/24 11:00 08/31/24 12:10 25 MLS/HR Gabapentin 300 mg TID PO 08/30/24 14:00 08/31/24 06:20 300 MG Acetaminophen/ Hydrocodone Bitart 1 tab BID PO 08/30/24 22:00 Tamsulosin HCl 0.4 mg DAILY PO 08/31/24 10:00 08/31/24 10:09 0.4 MG Topiramate 25 mg DAILY PO 08/31/24 10:00 08/31/24 10:09 25 MG Atorvastatin Calcium 40 mg DAILY PO 08/31/24 10:00 08/31/24 10:09 40 MG Diagnostic Test (Pha) 1 strip IQ4HR 08/30/24 12:00 08/31/24 00:25 1 STRIP Insulin Human Regular IQ4HR SC 08/30/24 12:00 Dextrose 50 ml UD PRN IV 08/30/24 10:15 Sodium Chloride 1,000 ml @ 60 mls/hr [id number] IV 08/30/24 10:15 08/31/24 03:21 60 MLS/HR Lorazepam 0.5 mg Q6HP PRN PO 08/30/24 10:15 Al Hydrox/Mg Hydrox/Simethicone 30 ml Q6HP PRN PO 08/30/24 10:15 Docusate Sodium 100 mg BIDPRN PRN PO 08/30/24 10:15 Acetaminophen 650 mg Q6HP PRN PO 08/30/24 10:15 Temazepam 15 mg QHSP PRN PO 08/30/24 10:15 Acetaminophen/ Hydrocodone Bitart 1 tab Q4HP PRN PO 08/30/24 10:15 Ondansetron HCl 4 mg Q4HP PRN IV 08/30/24 10:15 08/31/24 10:30 4 MG Morphine Sulfate 2 mg Q4HPRN PRN IV 08/30/24 10:15 08/31/24 10:32 2 MG Vancomycin HCl 200 ml @ 200 mls/hr Q8H IV 08/30/24 14:00 08/31/24 05:51 200 MLS/HR Enteral Nutritional Formula 27.5 gm BIDWM PO 08/30/24 18:00 08/30/24 18:00 27.5 GM Enteral Nutritional Formula 28.8 gm BIDWM PO 08/31/24 08:00 Propranolol HCl 80 mg BID PO 08/31/24 22:00 Laboratory Results Laboratory Tests 08/31/24 07:16 Chemistry Test 08/31/24 07:16 Calcium Level 9.8 mg/dL (8.7-10.4) Microbiology Microbiology Date/Time Source Procedure Growth Status 08/31/24 05:20 Nose MRSA Screen - Final Complete 08/30/24 06:30 Blood Blood Culture - Preliminary NO GROWTH AFTER 24 HOURS OF INCUBATION. Resulted Labs and/or images reviewed: Labs reviewed by me, Image(s) reviewed by me Assessment/Plan Assessment/Plan Chronic right foot wound infection: Vancomycin Zosyn consult for Dr. Castellon wound consult Uncontrolled diabetes: Insulin sliding scale Hypertension Diabetic neuropathy nephropathy vasculopathy Hypercholesterolemia History of sleep apnea BPH Time spent 50 minutes Patient is full code Advanced care planning time 20 mts Blood cultures negative Plan discussed with: Patient My Orders Orders - ERROL MARTINEZ MD Procedure Category Date Status Time Propranolol Hcl PHA 08/31/24 In Process Tablet (Inderal 22:00 Date of Service: Aug 31, 2024 Billing Provider: ERROL MARTINEZ MD Common Visit Codes: [id number] INP/OBS CARE(HIGH) Secondary Visit Codes: [id number] CARE PLAN 30 MINUTES ERROL MARTINEZ MD Aug 31, 2024 13:17
[2024-08-31 15:35] VITALS: BP 126/67; PULSE 92; RESP 20; TEMP 97.5; O2SAT 94
[2024-08-31 16:46] VITALS: BP 126/67; PULSE 92; RESP 20; TEMP 97.5; O2SAT 94
[2024-08-31] MEDS: VANCOMYCIN 1GM/200ML PREMIX 200 ML IV SCH (17:07)
[2024-08-31 20:00] VITALS: PULSE 92; RESP 20; O2SAT 95
[2024-08-31 21:00] VITALS: BP 126/82; PULSE 108; RESP 19; TEMP 97.1; O2SAT 89
[2024-08-31] MEDS: PROPRANOLOL HCL 20 MG TAB PO SCH (22:37)
[2024-09-01] VITALS (7 sets, daily range): BP systolic 119–128; BP diastolic 62–74; PULSE 68–92; RESP 16–20; TEMP 97.6–98.8; O2SAT 92–96
--- NOTE | 2024-09-01 13:21 | DVHINCON2 ---
Date Seen: Sep 01, 2024 Reason for Consultation Right foot wound History of Present Illness 58-year-old morbidly obese patient with a past medical history of diabetes hypertension hyperlipidemia diabetes sleep apnea and prostate disease comes to the ED for complaint of wound on his foot patient has a longstanding right foot diabetic ulcer patient states that he is having severe pain in the foot and it continues to get worse the pain has not been alleviated last time the patient was here while in the beginning of August for the same issue for the cellulitis of the diabetic foot wound patient was sent home with home healthcare and supposed to follow up with wound care but states that his wound continues to leak and continues to have pain patient was recommended for evaluation of inpatient treatment and management Past Medical History See H&P Past Surgical History See H&P Allergies: Coded Allergies: NO KNOWN ALLERGIES (Unverified , 07/31/24) Home Meds Active Scripts Gabapentin (Gabapentin) 100 Mg Cap, 1 CAP PO TID, #90 CAP 2 Refills Prov:KETTY MERRITT RESIDENT 08/04/24 Reported Medications Tamsulosin Hcl (Tamsulosin Hcl) 0.4 Mg Cap, 0.4 MG PO DAILY, CAP 08/01/24 Promethazine Hcl (Promethazine Hcl) 25 Mg Tab, 25 MG PO PRN for NAUSEA / VOMITING, TAB 08/01/24 Hydrocodone-Acetaminophen (Hydrocodone/Acetaminophen 10-325 mg) 1 Tab Tab, 1 TAB PO BID, TAB 08/01/24 Topiramate (Topamax) 25 Mg Tab, 25 MG PO DAILY, TAB 08/01/24 Propranolol Hcl (Inderal La) 80 Mg Cap, 160 MG PO DAILY, CAP 08/01/24 Atorvastatin Calcium (Lipitor) 40 Mg Tab, 40 MG PO DAILY, TAB 08/01/24 Metformin Hydrochloride (Metformin Hcl) 1,000 Mg Tab, 1000 MG PO DAILY, TAB 08/01/24 Current Medications Current Medications Medications (Trade) Dose Ordered Sig/Christen Route PRN Reason Start Time Stop Time Status Last Admin Propranolol HCl (Inderal Tablet) 80 mg BID PO 08/31/24 22:00 09/01/24 09:32 Vancomycin HCl 200 ml @ 200 mls/hr Q12H IV 08/31/24 17:00 09/01/24 04:42 Vital Signs Vital Signs Date Time Temp Pulse Resp B/P (MAP) Pulse Ox O2 Delivery O2 Flow Rate FiO2 09/01/24 13:00 97.9 71 16 120/67 (84) 92 97.9 08/31/24 20:00 Room Air* 0 21 Physical Exam DERMATOLOGIC EXAM: - Skin is dry and cool to the touch dry bilaterally. - Nails 1-5 of the bilateral foot are thickened, discolored, dystrophic, and tender to palpate with subungual debris - Hair loss noted to bilateral feet Wound #1: Location: Right dorsal foot Measurements: Length 3 cm x width 2 cm x depth 0.5 cm. Wound margins: Hyperkeratotic. Wound base: Full thickness. General Appearance: Fibrotic Probes to Bone: No Purulent drainage: No Serous drainage: Yes Erythema: Absent VASCULAR EXAM: - DP and PT pulses are palpable bilaterally. - INSURANCE SALES ASSOCIATE is brisk to all digits. - Feet are cool to touch compared to lower legs bilaterally. NEUROLOGIC EXAM: - Normal light touch sensation to the superficial peroneal, deep peroneal, sural, saphenous, and tibial nerve branches. - Protective sensation is diminished as tested with a 5.07 10g [place]-Mily bilaterally. MUSCULOSKELETAL EXAM: - No gross deformities - Muscle strength is 5/5 and active motion is pain-free and symmetrical bilaterally - No pain or crepitation with passive range of motion bilaterally to all major pedal joints Labs/Diagnostic Data Labs Test 09/01/24 07:59 08/31/24 13:30 08/31/24 07:16 08/30/24 06:15 Range/Units POC Glucose 123 H 70-106 mg/dl Vancomycin Level Trough 14.2 H 5-10 ug/mL White Blood Count 9.8 4.4-10.8 10^3/uL Red Blood Count 4.86 4.5-5.90 10^6/uL Hemoglobin 12.8 L 13.5-17.5 g/dL Hematocrit 39.0 L 41.0-53.0 % Mean Corpuscular Volume 80.2 80.0-100.0 fL Mean Corpuscular Hemoglobin 26.3 L 28.0-32.0 pg Mean Corpuscular Hemoglobin Concent 32.8 32.0-36.0 g/dL Red Cell Distribution Width 17.7 H 11.8-14.3 % Platelet Count 368 140-450 10^3/uL Mean Platelet Volume 7.7 6.9-10.8 fL Neutrophils (%) (Auto) 64.5 37.0-80.0 % Lymphocytes (%) (Auto) 21.4 10.0-50.0 % Monocytes (%) (Auto) 7.2 0.0-12.0 % Eosinophils (%) (Auto) 5.9 0.0-7.0 % Basophils (%) (Auto) 1.0 0.0-2.0 % Neutrophils # (Auto) 6.3 1.6-8.6 10 ^3/uL Lymphocytes # (Auto) 2.1 0.4-5.4 10 ^3/uL Monocytes # (Auto) 0.7 0-1.3 10 ^3/uL Eosinophils # (Auto) 0.6 0-0.8 10 ^3/uL Basophils # (Auto) 0.1 0-0.2 10 ^3/uL Nucleated Red Blood Cells 0.0 % Sodium Level 141 136-145 mmol/L Potassium Level 4.0 3.5-5.1 mmol/L Chloride Level 108 H 98-107 mmol/L Carbon Dioxide Level 24 20-31 mmol/L Anion Gap 9 5-15 Blood Urea Nitrogen 9 9-23 mg/dL Creatinine 1.15 0.700-1.30 mg/dL Glomerular Filtration Rate Calc 73 >90 mL/min BUN/Creatinine Ratio 7.8 L 10.0-20.0 Serum Glucose 122 H 74-106 mg/dL Calcium Level 9.8 8.7-10.4 mg/dL Lactic Acid Level 1.8 0.4-2.0 mmol/L Microbiology Date/Time Source Procedure Growth Status 08/31/24 05:20 Nose MRSA Screen - Final Complete 08/30/24 06:30 Blood Blood Culture - Preliminary NO GROWTH AFTER 48 HOURS OF INCUBATION. Resulted Problems(with codes): (1) Diabetes mellitus (2) Cellulitis of foot, right (3) Cellulitis (4) Diabetic foot infection Plan/Recommendation ASSESSMENT: Patient is a 58 year old who was seen on the floor for worsening right foot wound PLAN: - The patients chart was reviewed, clinical findings were discussed with the patient, the etiologies of the conditions were discussed in detail, and a treatment plan was agreed to at this time, with both oral and written instructions provided. - discussed with patient that the wound does not appear to be superficial deep at this point - discussed the fibrotic nature of the wound in the need for debridement, patient will not tolerate sharp debridement - recommend we use Medihoney for enzymatic debridement at this point - wound care continue caring for the wound with Medihoney - patient should follow up as an outpatient to re-evaluate the wound - no surgical intervention needed at this point All questions were answered and concerns addressed to the patient's satisfaction. The patient was given the phone number to the clinic and was told how to make contact with the clinic should any concerns or questions arise. Patient understands that if any questions or concerns arise prior to the next appointment, we should be contacted immediately. FOLLOW-UP: Patient will follow up with me in 1 week for continued wound care Plan discussed with: Patient Date of Service: Sep 01, 2024 Billing Provider: JACINTO BURTON DPM Common Visit Codes: [id number] INP/OBS CARE (MOD) JACINTO BURTON DPM Sep 01, 2024 13:21
--- NOTE | 2024-09-01 13:47 | DVHPN2 ---
Reviewed: Care Plan, H&P, Labs, Medications, Previous Orders, Radiology Changes from previous H/P or p: No Changes Eyes: No Pain, No Vision change, No Conjunctivae inflammation, No Eyelid inflammation, No Other, No Redness ENT: No Ear pain, No Ear discharge, No Nose pain, No Nose discharge, No Nose congestion, No Mouth pain, No Mouth swelling, No Throat pain, No Throat swelling, No Other Cardiovascular: No Chest Pain, No Palpitations, No Orthopnea, No Paroxysmal Noc. Dyspnea, No Edema, No Lt Headedness, No Other Respiratory: No Cough, No Dry, No Shortness of breath, No SOB with excertion, No Wheezing, No Hemoptysis, No Pleuritic Pain, No Sputum, No Other Gastrointestinal: No Nausea, No Vomiting, No Abdominal Pain, No Diarrhea, No Constipation, No Melena, No Hematochezia, No Other Genitourinary: No Dysuria, No Frequency, No Incontinence, No Hematuria, No Retention, No Other Musculoskeletal: No other, No neck pain, No shoulder pain, No arm pain, No back pain, No hand pain; leg pain, foot pain Skin: No Rash, No Lesions, No Jaundice, No Bruising, No Other Objective Vitals Vital Signs Date Time Temp Pulse Resp B/P (MAP) Pulse Ox O2 Delivery O2 Flow Rate FiO2 09/01/24 13:00 97.9 71 16 120/67 (84) 92 97.9 09/01/24 08:00 Room Air* 0 21 Intake/Output Intake and Output 09/01/24 07:00 Intake Total 2000 ml Balance 2000 ml Intake Oral 1200 ml IV Total 800 ml # Voids 4 Medications Current Medications Medications Dose Ordered Sig/Christen Route Start Time Stop Time Status Last Admin Dose Admin Vancomycin HCl 0 ml @ 0 mls/hr UD IV 08/30/24 10:15 Piperacillin Sod/ Tazobactam Sod 100 ml @ 25 mls/hr Q6H IV 08/30/24 11:00 09/01/24 10:27 25 MLS/HR Gabapentin 300 mg TID PO 08/30/24 14:00 08/31/24 23:07 300 MG Acetaminophen/ Hydrocodone Bitart 1 tab BID PO 08/30/24 22:00 08/31/24 22:36 1 TAB Tamsulosin HCl 0.4 mg DAILY PO 08/31/24 10:00 09/01/24 09:32 0.4 MG Topiramate 25 mg DAILY PO 08/31/24 10:00 09/01/24 09:32 25 MG Atorvastatin Calcium 40 mg DAILY PO 08/31/24 10:00 09/01/24 09:32 40 MG Diagnostic Test (Pha) 1 strip IQ4HR 08/30/24 12:00 09/01/24 08:00 1 STRIP Insulin Human Regular IQ4HR SC 08/30/24 12:00 Dextrose 50 ml UD PRN IV 08/30/24 10:15 Sodium Chloride 1,000 ml @ 60 mls/hr [id number] IV 08/30/24 10:15 08/31/24 19:41 60 MLS/HR Lorazepam 0.5 mg Q6HP PRN PO 08/30/24 10:15 Al Hydrox/Mg Hydrox/Simethicone 30 ml Q6HP PRN PO 08/30/24 10:15 Docusate Sodium 100 mg BIDPRN PRN PO 08/30/24 10:15 Acetaminophen 650 mg Q6HP PRN PO 08/30/24 10:15 Temazepam 15 mg QHSP PRN PO 08/30/24 10:15 Acetaminophen/ Hydrocodone Bitart 1 tab Q4HP PRN PO 08/30/24 10:15 Ondansetron HCl 4 mg Q4HP PRN IV 08/30/24 10:15 09/01/24 09:21 4 MG Morphine Sulfate 2 mg Q4HPRN PRN IV 08/30/24 10:15 09/01/24 09:21 2 MG Enteral Nutritional Formula 27.5 gm BIDWM PO 08/30/24 18:00 09/01/24 08:00 27.5 GM Enteral Nutritional Formula 28.8 gm BIDWM PO 08/31/24 08:00 Propranolol HCl 80 mg BID PO 08/31/24 22:00 09/01/24 09:32 80 MG Vancomycin HCl 200 ml @ 200 mls/hr Q12H IV 08/31/24 17:00 09/01/24 04:42 200 MLS/HR Laboratory Results Laboratory Tests 08/31/24 07:16 Microbiology Microbiology Date/Time Source Procedure Growth Status 08/31/24 05:20 Nose MRSA Screen - Final Complete 08/30/24 06:30 Blood Blood Culture - Preliminary NO GROWTH AFTER 48 HOURS OF INCUBATION. Resulted Labs and/or images reviewed: Labs reviewed by me, Image(s) reviewed by me Assessment/Plan Assessment/Plan Chronic right foot wound infection: Vancomycin Zosyn consult for Dr. Davis appreciated, advised wound care no surgical intervention Uncontrolled diabetes: Insulin sliding scale Hypertension Diabetic neuropathy nephropathy vasculopathy Hypercholesterolemia History of sleep apnea BPH Time spent 50 minutes Patient is full code Advanced care planning time 20 mts Blood cultures negative Ordered venous ultrasound and arterial altered lower extremeties Plan discussed with: Patient My Orders Orders - ERROL MARTINEZ MD Procedure Category Date Status Time Cleanse Wound With KRISTEL 08/31/24 In Process Wound Clean 16:44 Vasc Arterial Vania US 09/01/24 Verified Complete 13:38 Bilat Lower Dvt US 09/01/24 Verified 13:38 Date of Service: Sep 01, 2024 Billing Provider: ERROL MARTINEZ MD Common Visit Codes: [id number] INP/OBS CARE(HIGH) ERROL MARTINEZ MD Sep 01, 2024 13:47
--- NOTE | 2024-09-01 14:44 | DVH ---
Bilateral lower extremity venous duplex Clinical History: rule out dvt Comparison: US BILAT LOW EXT ART DUPLEX on DOS: 08/01/24, US BILAT LOWER DVT on DOS: 08/01/24 Technique: Duplex Doppler evaluation of the deep venous systems of both lower extremities from the common femora l veins to the popliteal veins including color Doppler and spectral/pulsed waveform analysis was perf ormed. Findings: RIGHT SIDE: The common femoral vein demonstrates appropriate compressibility and waveform variability. There is compressibility/patency of the great saphenous vein at the proximal thigh. The femoral vein demonstrates appropriate compressibility and waveform variability. The deep femoral vein demonstrates appropriate compressibility and waveform variability. The popliteal vein demonstrates appropriate compressibility and waveform variability. There is color flow at the tibioperoneal trunk and in the posterior tibial vein. LEFT SIDE: The common femoral vein demonstrates appropriate compressibility and waveform variability. There is compressibility/patency of the great saphenous vein at the proximal thigh. The femoral vein demonstrates appropriate compressibility and waveform variability. The deep femoral vein demonstrates appropriate compressibility and waveform variability. The popliteal vein demonstrates appropriate compressibility and waveform variability. There is color flow at the tibioperoneal trunk and in the posterior tibial vein. Subcutaneous edema noted in the left calf. Impression: 1. No right or left femoropopliteal venous thrombosis.
--- NOTE | 2024-09-01 14:50 | DVH ---
Bilateral Lower Extremity Arterial Duplex Clinical History: Rule out Peripheral arterial disease Comparison: US BILAT LOWER DVT on DOS: 09/01/24, US BILAT LOW EXT ART DUPLEX on DOS: 08/01/24, US BILAT LOWER DVT on DOS: 08/01/24 Technique: Duplex Doppler evaluation including color Doppler and spectral/pulsed waveform analysis of the lower extremity arteries was performed. Findings: RIGHT: Peak systolic velocities are as follows: TOOL REPAIRER 175 cm/s Deep femoral 72 cm/s SFA proximal 167 cm/s SFA mid-portion 142 cm/s SFA distal 108 cm/s Popliteal 113 cm/s Posterior tibial 87 cm/s Dorsalis pedis 117 cm/s The waveforms are monophasic. LEFT: Peak systolic velocities are as follows: TOOL REPAIRER 172 cm/s Deep femoral 95 cm/s SFA proximal 157 cm/s SFA mid-portion 118 cm/s SFA distal 116 cm/s Popliteal 119 cm/s Posterior tibial 125 cm/s Dorsalis pedis 115 cm/s The waveforms are triphasic with diastolic flow. IMPRESSION: 20-49% stenosis of the right and left common femoral artery and proximal superficial femoral artery b ased on peak systolic velocity criteria. Abnormal monophasic waveforms in the right dorsalis pedis artery suggestive of underlying peripheral arterial disease. REFERENCE VALUES, [facility] ([facility]) vascular Imaging Lab Criteria: Peak systolic velocity ranges (in cm/sec) are as follows: <150 cm/s - <20 % stenosis 150-200 cm/s - 20-49% stenosis 200-300 cm/s - 50-75% stenosis >300 cm/s -> 75% stenosis
[2024-09-01] MEDS: GABAPENTIN 300 MG CAP PO SCH (21:50)
[2024-09-02 01:00] VITALS: BP 102/48; PULSE 65; RESP 20; TEMP 97.7; O2SAT 93
[2024-09-02 05:00] VITALS: BP 120/51; PULSE 68; RESP 20; TEMP 98; O2SAT 94
[2024-09-02 07:07] LABS: Basophils # (auto) 0 10 ^3/uL (0-0.2); Basophils % (auto) 0.5 % (0.0-2.0); Eosinophils # (auto) 0.6 10 ^3/uL (0-0.8)
[2024-09-02 07:10] LABS: Eosinophils % (auto) 5.7 % (0.0-7.0); Hematocrit 36.3 % (41.0-53.0); Hemoglobin 11.9 g/dL (13.5-17.5); Lymphocytes # (auto) 2.9 10 ^3/uL (0.4-5.4); Lymphocytes % (auto) 28.5 % (10.0-50.0); Mean Corpuscular Hemoglobin 26.3 pg (28.0-32.0); Mean Corpuscular Hgb Conc. 32.7 g/dL (32.0-36.0); Mean Corpuscular Volume 80.3 fL (80.0-100.0); Monocytes # (auto) 0.8 10 ^3/uL (0-1.3); Monocytes % (auto) 7.6 % (0.0-12.0); Neutrophils # (auto) 5.8 10 ^3/uL (1.6-8.6); Neutrophils % (auto) 57.7 % (37.0-80.0); Nucleated Red Blood Cells % 0.1 %; Platelet Count (auto) 389 10^3/uL (140-450); Red Blood Cells 4.52 10^6/uL (4.5-5.90); Red Cell Distribution Width 17.3 % (11.8-14.3); White Blood Cell 10.1 10^3/uL (4.4-10.8)
[2024-09-02 08:54] VITALS: BP 136/73; PULSE 72; RESP 16; TEMP 97.7; O2SAT 92
[2024-09-02] MEDS ORDERED: CLIN1CAP70 PO (12:40)
[2024-09-02] MEDS ORDERED: HYDR-4902 PO (12:40)
--- NOTE | 2024-09-02 12:45 | DVHDS2 ---
Discharge Summary Date of Admission Aug 30, 2024 at 10:06 Date of Discharge: Sep 02, 2024 Admitting Diagnosis Nonhealing right foot diabetic infection Wounds: Nonhealing right foot diabetic infection Labs/Diagnostic Data: Laboratory Results Test 09/02/24 11:51 09/02/24 04:53 09/01/24 14:50 08/31/24 13:30 POC Glucose 118 mg/dl (70-106) White Blood Count 10.1 10^3/uL (4.4-10.8) Red Blood Count 4.52 10^6/uL (4.5-5.90) Hemoglobin 11.9 g/dL (13.5-17.5) Hematocrit 36.3 % (41.0-53.0) Mean Corpuscular Volume 80.3 fL (80.0-100.0) Mean Corpuscular Hemoglobin 26.3 pg (28.0-32.0) Mean Corpuscular Hemoglobin Concent 32.7 g/dL (32.0-36.0) Red Cell Distribution Width 17.3 % (11.8-14.3) Platelet Count 389 10^3/uL (140-450) Mean Platelet Volume 8.4 fL (6.9-10.8) Neutrophils (%) (Auto) 57.7 % (37.0-80.0) Lymphocytes (%) (Auto) 28.5 % (10.0-50.0) Monocytes (%) (Auto) 7.6 % (0.0-12.0) Eosinophils (%) (Auto) 5.7 % (0.0-7.0) Basophils (%) (Auto) 0.5 % (0.0-2.0) Neutrophils # (Auto) 5.8 10 ^3/uL (1.6-8.6) Lymphocytes # (Auto) 2.9 10 ^3/uL (0.4-5.4) Monocytes # (Auto) 0.8 10 ^3/uL (0-1.3) Eosinophils # (Auto) 0.6 10 ^3/uL (0-0.8) Basophils # (Auto) 0 10 ^3/uL (0-0.2) Nucleated Red Blood Cells 0.1 % Creatinine 1.27 mg/dL (0.700-1.30) Glomerular Filtration Rate Calc 65 mL/min (>90) Hemoglobin A1c 6.5 % A1C (<5.7) Vancomycin Level Trough 14.2 ug/mL (5-10) Test 08/31/24 07:16 08/30/24 06:15 Sodium Level 141 mmol/L (136-145) Potassium Level 4.0 mmol/L (3.5-5.1) Chloride Level 108 mmol/L (98-107) Carbon Dioxide Level 24 mmol/L (20-31) Anion Gap 9 (5-15) Blood Urea Nitrogen 9 mg/dL (9-23) BUN/Creatinine Ratio 7.8 (10.0-20.0) Serum Glucose 122 mg/dL (74-106) Calcium Level 9.8 mg/dL (8.7-10.4) Lactic Acid Level 1.8 mmol/L (0.4-2.0) Other Laboratory Tests 09/02/24 04:53 08/31/24 07:16 Brief Hx & Hospital Course: 58-year-old male with a history of diabetes hypertension hypercholesterolemia CP apnea BPH noncompliant came in complaining of nonhealing chronic right foot diabetic wound. Treated with the Zosyn and vancomycin podiatric consult by Dr. Davis who advised no surgical intervention but wound care patient feels better and wants to go home. Discharged home on p.o. clindamycin and [place]. He was advised to follow up with the his primary Dr at the [place] for further care Consults/Reason for consult Podiatry Dr. Davis Operations or Procedures None Condition at Discharge: Fair Final Diagnosis/Problems List Chronic right foot wound infection: Vancomycin Zosyn consult for Dr. Davis appreciated, advised wound care no surgical intervention Uncontrolled diabetes: Insulin sliding scale Hypertension Diabetic neuropathy nephropathy vasculopathy Hypercholesterolemia History of sleep apnea BPH Discharge Disposition: Home Discharge Instruct/Medications Diet: Consistent carbohydrate Activity: Light activity Follow Up/Referral: Follow up with your primary Dr at the [place] Continue all previous home meds Medications: Clindamycin [place] Transmitted to [facility] 36 (Time Taken for discharge summary 36 minutes) Discharge Statement: "Patient was advised to return to the ER or call 911 if any headaches, dizziness, shortness of breath, chest pain, abdominal pain, bleeding, fevers, or worsening of medical condition. Patient was counseled about treatment plan, medications, possible side effects, patientverbalized understanding. All questions were answered to the best of my ability. This discharge took greater then 30 minutes in planning, reviewing documentation, counseling the patient, and discussing with other team members." ASSESSMENT ASSESSMENT Hospital Course Minimal improvement Assessment Chronic right foot wound infection: Vancomycin Zosyn consult for Dr. Davis appreciated, advised wound care no surgical intervention Uncontrolled diabetes: Insulin sliding scale Hypertension Diabetic neuropathy nephropathy vasculopathy Hypercholesterolemia History of sleep apnea BPH Date of Service: Sep 02, 2024 Billing Provider: ERROL MARTINEZ MD Common Visit Codes: [id number] DISCH DAY >30min ERROL MARTINEZ MD Sep 02, 2024 12:45
[2024-09-02 12:55] VITALS: BP 132/76; PULSE 63; RESP 17; TEMP 97.8; O2SAT 96
[2024-09-02 15:29] VITALS: BP 129/69; PULSE 69; RESP 16; TEMP 98.1; O2SAT 98
[2024-09-02] MEDS ORDERED: VANCOMYCIN 1GM/250ML KIT 250 ML IV SCH (17:00)
== END 2024-09-02 16:10 | disposition home or self-care (01) | DRG 638 ==
LOC: ER 05:26 → OVERFLOW 10:06 → WEST WING 08-31 15:30
PROVIDERS: ADMIT Hospitalist; ATTEND Family Medicine
DX: E11.621 Type 2 diabetes mellitus with foot ulcer (principal); L03.115 Cellulitis of right lower limb; Z68.42 Body mass index [BMI] 45.0-49.9, adult; E66.01 Morbid (severe) obesity due to excess calories; E11.40 Type 2 diabetes mellitus with diabetic neuropathy, unspecified; E11.21 Type 2 diabetes mellitus with diabetic nephropathy; E78.00 Pure hypercholesterolemia, unspecified; I10 Essential (primary) hypertension; G43.909 Migraine, unspecified, not intractable, without status migrainosus; N40.0 Benign prostatic hyperplasia without lower urinary tract symptoms; L97.519 Non-pressure chronic ulcer of other part of right foot with unspecified severity; Z79.4 Long term (current) use of insulin; Z87.891 Personal history of nicotine dependence
CPT/HCPCS: 36415; 73630; 80048; 80202; 82565; 82962; 83036; 83605; 85025; 87040; 87081; 93925; 93970; G0378; J2405; J2543

== ENCOUNTER 2025-06-04 14:54 | Inpatient (IN) | payer OTHER ==
[~2025-06-04] VITALS: Ht 185.4 cm; Wt 151.7 kg
[~2025-06-04 14:54] MED LIST changes: -ACET650T12 PO; -BACDST PO; +CLIN1CAP70 PO; +HYDR-4902 PO
[2025-06-04 15:41] LABS: Hematocrit 40.2 % (41.0-53.0); Hemoglobin 13.3 g/dL (13.5-17.5); Mean Corpuscular Hemoglobin 27.8 pg (28.0-32.0); Mean Corpuscular Volume 84.1 fL (80.0-100.0); Nucleated Red Blood Cells % 0.2 %
--- NOTE | 2025-06-04 15:43 | DVH ---
XY CHEST PORTABLE, HISTORY: parashtesias COMPARISON: None 1 TECHNICAL DATA: 1 view of the chest was obtained. FINDINGS: Lines and tubes: None Cardiomediastinal silhouette: normal Pulmonary vasculature: normal Lung expansion: normal Lung airspace: normal Lung interstitium: normal Pleura: normal Pneumothorax: no Bones: Unremarkable Other: no IMPRESSION: No acute intrathoracic abnormality.
[2025-06-04 15:48] LABS: Chloride 98 mmol/L (98-107); Potassium 4.6 mmol/L (3.5-5.1)
[2025-06-04 15:50] LABS: Anion Gap 9 (5-15); Calcium 8.9 mg/dL (8.7-10.4); Carbon Dioxide 26 mmol/L (20-31)
[2025-06-04 15:51] LABS: Sodium 133 mmol/L (136-145)
[2025-06-04 15:56] LABS: BUN/Creatinine Ratio 4.0 (10.0-20.0); Blood Urea Nitrogen < 5 mg/dL (9-23)
[2025-06-04 15:58] LABS: Glucose 647 mg/dL (74-106)
[2025-06-04] MEDS: SODIUM CHLORIDE 0.9% 1,000 ML IV ONE (15:58)
[2025-06-04 16:16] VITALS: PULSE 84; RESP 20; O2SAT 96
--- NOTE | 2025-06-04 16:50 | ED.PDOC ---
History of present illness HPI Comments This is a 59 year old male presenting to the ED with chief complaint of hyperglycemia. Patient reports that he had routine blood work done at the [facility] clinic today, however, he received a call 30 minutes ago informing him that his glucose was at 583. Patient states he was advised to come to the ED for further evaluation. Patient notes he only feels sightly fatigued with some associated chronic numbness of bilateral pinky fingers. Patient denies any excessive thirst, frequent urination, dysuria, SOB, chest pain, or headache. Chief Complaint: Hyperglycemia Time Seen by MD: 15:00 History of present illness: Nurses Notes, Medications, Allergies Allergies: Coded Allergies: NO KNOWN ALLERGIES (Unverified , 07/31/24) Home Meds Active Scripts Hydrocodone-Acetaminophen (Hydrocodone Bitartrate/AC 5-325 mg) 1 Tab Tab, 1 TAB PO QID PRN, #30 TAB Prov:ERROL MARTINEZ MD 09/02/24 Clindamycin Hcl (Clindamycin Hcl) 300 Mg Cap, 1 CAP PO TID, #30 CAP Prov:ERROL MARTINEZ MD 09/02/24 Gabapentin (Gabapentin) 100 Mg Cap, 1 CAP PO TID, #90 CAP 2 Refills Prov:KETTY MERRITT RESIDENT 08/04/24 Reported Medications Tamsulosin Hcl (Tamsulosin Hcl) 0.4 Mg Cap, 0.4 MG PO DAILY, CAP 08/01/24 Promethazine Hcl (Promethazine Hcl) 25 Mg Tab, 25 MG PO PRN for NAUSEA / VOMITING, TAB 08/01/24 Hydrocodone-Acetaminophen (Hydrocodone/Acetaminophen 10-325 mg) 1 Tab Tab, 1 TAB PO BID, TAB 08/01/24 Topiramate (Topamax) 25 Mg Tab, 25 MG PO DAILY, TAB 08/01/24 Propranolol Hcl (Inderal La) 80 Mg Cap, 160 MG PO DAILY, CAP 08/01/24 Atorvastatin Calcium (Lipitor) 40 Mg Tab, 40 MG PO DAILY, TAB 08/01/24 Metformin Hydrochloride (Metformin Hcl) 1,000 Mg Tab, 1000 MG PO DAILY, TAB 08/01/24 Information Source: Patient Mode of Arrival: Ambulatory Timing: Hours Duration: Since onset Prehospital treatment: None [place]: None History of: Diabetes Past Medical History PAST MEDICAL HISTORY: DM, High Lipids Surgical History: Denies all surgeries Family History Family History: Unknown Social History Smoker: Non-Smoker, Quit Greater Than 1 Year Alcohol: Denies ETOH Use Drugs: Denies Drug Use Lives In: Home Constitutional: reports: fatigue; denies: chills, diaphoresis, fever, malaise, sweats, weakness, others EENTM: denies: blurred vision, double vision, ear bleeding, ear discharge, ear drainage, ear pain, ear ringing, eye pain, eye redness, hearing loss, mouth pain, mouth swelling, nasal discharge, nose bleeding, nose congestion, nose pain, photophobia, tearing, throat pain, throat swelling, voice changes, others Respiratory: denies: cough, hemoptysis, orthopnea, SOB at rest, shortness of breath, SOB with excertion, stridor, wheezing, others Cardiovascular: denies: chest pain, dizzy spells, diaphoresis, Dyspnea on exertion, edema, irregular heart beat, left arm pain, lightheadedness, palpitations, PND, syncope, others Gastrointestinal: denies: abdomen distended, abdominal pain, blood streaked bowels, constipated, diarrhea, dysphagia, difficulty swallowing, hematemesis, melena, nausea, poor appetite, poor fluid intake, rectal bleeding, rectal pain, vomiting, others Genitourinary: denies: burning, dysuria, flank pain, frequency, hematuria, incontinence, penile discharge, penile sore, pain, testicle pain, testicle swelling, urgency, others Neurological: reports: numbness; denies: dizziness, fainting, headache, left sided numbness, left sided weakness, paresthesia, pre-existing deficit, right sided numbness, right sided weakness, seizure, speech problems, tingling, tremors, weakness, others Musculoskeletal: denies: back pain, gout, joint pain, joint swelling, muscle pain, muscle stiffness, neck pain, others Integumetry: denies: bruises, change in color, change in hair/nails, dryness, laceration, lesions, lumps, rash, wounds, others Allergic/Immunocompromised: denies: Difficulty Healing, Frequent Infections, Hives, Itching, others Hematologic/Lymphatic: denies: anemia, blood clots, easy bleeding, easy bruising, swollen glands, others Endocrine: denies: excessive hunger, excessive sweating, excessive thirst, excessive urination, flushing, intolerance to cold, intolerance to heat, unexpla ined weight gain, unexplained weight loss, others Psychiatric: denies: anxiety, bipolar disorder, depression, hopeless, panic disorder, schizophrenia, sleepless, suicidal, others All Other Systems: Reviewed and Negative Physical Exam General Appearance: No Apparent Distress, Normal HEENT: Normal ENT Inspection, Pharynx Normal, TMs Normal Neck: Full Range of Motion, Non-Tender, Normal, Normal Inspection Respiratory: Chest Non-Tender, Lungs Clear, No Accessory Muscle Use, No Respiratory Distress, Normal Breath Sounds Cardiovascular: No Edema, No JVD, No Murmur, No Gallop, Normal Peripheral Pulses, Regular Rate/Rhythm Breast Exam: Deferred Gastrointestinal: No Organomegaly, Non Tender, No Pulsatile Mass, Normal Bowel Sounds, Soft Genitalia: Deferred Pelvic: Deferred Rectal: Deferred Extremities: No calf tenderness, Normal capillary refill, Normal inspection, Normal range of motion, Non-tender, No pedal edema Musculoskeletal : Apperance: Normal Neurologic: Alert, vision therapist II-XII nml as Tested, No Motor Deficits, Normal Affect, Normal Mood, No Sensory Deficits Cerebellar Function: Normal Reflexes: Normal Skin: Dry, Normal Color, Warm Lymphatic: No Adenopathy Was a procedure done? Was a procedure done?: No Differential Diagnosis (DM) Differential Diagnosis: Hyperglycemia X-Ray, Labs, Meds, VS Vital Signs Date Time Temp Pulse Resp B/P (MAP) Pulse Ox O2 Delivery O2 Flow Rate FiO2 06/04/25 16:16 84 20 96 Room Air* 0 21 06/04/25 14:59 97.6 74 16 127/76 95 97.6 Lab Test 06/04/25 18:28 06/04/25 16:42 06/04/25 16:05 06/04/25 15:27 Range/Units Troponin I High Sensitivity Pending 3 L < 3 L </=54 ng/L Urine Color Colorless Yellow Urine Clarity Clear Clear Urine pH 6.0 5.0-9.0 Urine Specific [place] 1.022 1.001-1.035 Urine Protein Negative Negative Urine Ketones Negative Negative Urine Blood Negative Negative /uL Urine Nitrite Negative Negative Urine Bilirubin Negative Negative Urine Urobilinogen Normal Negative mg/dL Urine Leukocyte Esterase Negative Negative /uL Urine RBC <1 0 - 3 /hpf Urine Microscopic WBC < 1 0-3 /HPF Urine Squamous Epithelial Cells None seen <5 /hpf Urine Bacteria None seen None Seen /hpf Urine Glucose 4+ H Normal mg/dL White Blood Count 8.9 4.4-10.8 10^3/uL Red Blood Count 4.78 4.5-5.90 10^6/uL Hemoglobin 13.3 L 13.5-17.5 g/dL Hematocrit 40.2 L 41.0-53.0 % Mean Corpuscular Volume 84.1 80.0-100.0 fL Mean Corpuscular Hemoglobin 27.8 L 28.0-32.0 pg Mean Corpuscular Hemoglobin Concent 33.0 32.0-36.0 g/dL Red Cell Distribution Width 17.8 H 11.8-14.3 % Platelet Count 323 140-450 10^3/uL Mean Platelet Volume 8.9 6.9-10.8 fL Neutrophils (%) (Auto) 54.2 37.0-80.0 % Lymphocytes (%) (Auto) 36.6 10.0-50.0 % Monocytes (%) (Auto) 5.7 0.0-12.0 % Eosinophils (%) (Auto) 2.6 0.0-7.0 % Basophils (%) (Auto) 0.9 0.0-2.0 % Neutrophils # (Auto) 4.8 1.6-8.6 10 ^3/uL Lymphocytes # (Auto) 3.3 0.4-5.4 10 ^3/uL Monocytes # (Auto) 0.5 0-1.3 10 ^3/uL Eosinophils # (Auto) 0.2 0-0.8 10 ^3/uL Basophils # (Auto) 0.1 0-0.2 10 ^3/uL Nucleated Red Blood Cells 0.2 % Sodium Level 133 L 136-145 mmol/L Potassium Level 4.6 3.5-5.1 mmol/L Chloride Level 98 98-107 mmol/L Carbon Dioxide Level 26 20-31 mmol/L Anion Gap 9 5-15 Blood Urea Nitrogen < 5 L 9-23 mg/dL Creatinine 1.26 0.700-1.30 mg/dL Glomerular Filtration Rate Calc 65 >90 mL/min BUN/Creatinine Ratio 4.0 L 10.0-20.0 Serum Glucose 647 *H 74-106 mg/dL Calcium Level 8.9 8.7-10.4 mg/dL Test 06/04/25 15:06 Range/Units POC Glucose > 600 *H 70-106 mg/dl Current Medications Medications (Trade) Dose Ordered Sig/Christen Route Start Time Stop Time Status Last Admin Sodium Chloride 1,000 ml @ 1,000 mls/hr Q1H ONCE IV 06/04/25 15:30 06/04/25 16:29 DC 06/04/25 15:58 Time of 1ST Reevaluation: 16:00 Reevaluation 1ST: Unchanged Patient Education/Counseling: Diagnosis, Treatment Family Education/Counseling: No Family Present SEPSIS Sepsis Screen Date sepsis recognized/suspect: Jun 04, 2025 Time Sepsis recognized/suspect: 1503 Recent Procedure: No On Antibiotic Therapy: No Respiratory Rate >20: No Heart Rate >90: No Temp<36 C (96.8 F) or >38.3 C: No SBP <90 or MAP <65 mmHG: No New Acute Mental Status Change: No Is the patient on CPAP, BIPAP,: No Physician Orders Chest Portable (06/04/25 15:17) Troponin-I Hs (06/04/25 18:17) Insulin R (Human) (Insulin R) (06/04/25 19:00) Vital Signs Date Time Temp Pulse Resp B/P (MAP) Pulse Ox O2 Delivery O2 Flow Rate FiO2 06/04/25 16:16 84 20 96 Room Air* 0 21 06/04/25 14:59 97.6 74 16 127/76 95 97.6 Laboratory Tests Test 06/04/25 15:27 White Blood Count 8.9 10^3/uL (4.4-10.8) Medications Medications Dose Ordered Sig/Christen Route Start Time Stop Time Status Last Admin Dose Admin Sodium Chloride 1,000 ml @ 1,000 mls/hr Q1H ONCE IV 06/04/25 15:30 06/04/25 16:29 DC 06/04/25 15:58 Departure 1 Departure Time of Disposition: 18:53 (Patient with a uncontrolled diabetes and worsening paresthesias. We will admit patient for further workup and expert consultation) Impression: Primary Impression: Uncontrolled diabetes mellitus Qualified Codes: E11.65 - Type 2 diabetes mellitus with hyperglycemia Additional Impression: Paresthesias Disposition: ADMITTED INPATIENT Admit to: Med Surg Condition: Guarded Critical Care Note Critical Care Time?: Yes Critical care comment: Concern for DKA Authorized and Performed by: Rima Ramirez MD Total critical care time: Approximately 38 minutes Due to a high probability of clinically significant, life threatening deterioration, the patient required my highest level of preparedness to intervene emergently and I personally spent this critical care time directly and personally managing the patient. This critical care time included obtaining a history; examining the patient; pulse oximetry; ordering and review of studies; arranging urgent treatment with development of a management plan; evaluation of patient's response to treatment; frequent reassessment; and, discussions with other providers. This critical care time was performed to assess and manage the high probability of imminent, life-threatening deterioration that could result in multi-organ failure. It was exclusive of separately billable procedures and treating other patients and teaching time. Please see my other sections and the rest of the note for further information on patient assessment and treatment. Stability Stability form required: No Heart Score Heart Score: Heart Score Response (Comments) Value History N/A 0 EKG N/A 0 Age N/A 0 Risk Factors N/A 0 Troponin N/A 0 Total 0 I personally scribed for RIMA RAMIREZ MD ([email or web address]) on 06/04/25 at 16:50. Electronically submitted by Rik Hutchinson ([email or web address]). RIMA RAMIREZ MD Jun 04, 2025 16:50
[2025-06-04 16:52] LABS: Urine Protein, UAD Negative (Negative)
[2025-06-04] MEDS: InsuLIN REG 1unit/0.01ml Soln (100units/ml) IV ONE (22:13)
[2025-06-04] MEDS: SODIUM CHLORIDE 0.9% 1,000 ML IV SCH (23:00)
[2025-06-04] MEDS ORDERED: DOCUSATE SOD 100 MG CAP PO PRN (23:00)
[2025-06-04 23:57] LABS: Alanine Aminotransferase 20 U/L (7-40); Albumin 4.4 g/dL (3.2-4.8); Anion Gap 10 (5-15); Calcium 9.4 mg/dL (8.7-10.4); Carbon Dioxide 24 mmol/L (20-31); Potassium 4.1 mmol/L (3.5-5.1); Sodium 141 mmol/L (136-145); Total Protein 8.0 g/dL (5.7-8.2)
[2025-06-04 23:58] VITALS: BP 128/65; PULSE 69; RESP 18; TEMP 98.7; O2SAT 94
[2025-06-05] VITALS (8 sets, daily range): BP systolic 111–133; BP diastolic 56–81; PULSE 69–85; RESP 18–20; TEMP 97.5–98.7; O2SAT 94–96
[2025-06-05 00:04] LABS: Chloride 107 mmol/L (98-107); Glucose 230 mg/dL (74-106)
[2025-06-05 00:05] LABS: Alkaline Phosphatase 162 U/L (46-116); BUN/Creatinine Ratio 5.0 (10.0-20.0); Bilirubin, Total 1.4 mg/dL (0.2-1.0); Blood Urea Nitrogen < 5 mg/dL (9-23)
[2025-06-05] MEDS: HYDROcodone-ACET 5/325MG TAB PO PRN (00:40)
[2025-06-05] MEDS ORDERED: DEXTROSE (50%) 50ML SYRG IV PRN (04:00)
[2025-06-05] MEDS: InsuLIN REG 1unit/0.01ml Soln (100units/ml) SC SCH (04:00)
--- NOTE | 2025-06-05 04:22 | DVHHPRES ---
History of Present Illness Resident Creating Document: POLA ZHU RESIDENT History of Present Illness Mary Sanchez is a 59-year-old male with a medical history significant for type 2 diabetes mellitus, diabetic neuropathy, venous insufficiency, chronic migraines, dyslipidemia, and benign prostatic hyperplasia (BPH), who presented to the emergency department (ED) with a chief complaint of hyperglycemia. Earlier today, he visited the [facility] for routine blood work and was subsequently contacted approximately 30 minutes prior to arrival at the ED, being informed that his blood glucose level was critically elevated at 583 mg/dL. Following this notification, he was advised to seek immediate evaluation at the hospital. Upon arrival, his blood glucose was found to be in the 600s. The patient reports feeling only slightly fatigued and notes chronic numbness in both pinky fingers, which he attributes to his known diabetic neuropathy. He also mentions experien cing some blurring of vision but denies any confusion, abdominal pain, shortness of breath, chest pain, headache, dysuria, excessive thirst, or frequent urination. Past Medical History (PMH): type 2 diabetes mellitus, diabetic neuropathy, venous insufficiency, chronic migraines, dyslipidemia, and benign prostatic hyperplasia (BPH) Past Surgical History (PSH): Tonsillectomy 30 years ago, oral maxillary facial surgery 25 years ago OBGYN Hx in Females: noncontributory Family history (FH): patient is adopted EtOH: patient denies alcohol use Smoking /Vapin pack years Recreational Drugs: patient denies recreational drug use Residence: lives alone Home Medications: tamsulosin, Lipitor, topiramate, Flomax Allergies: no known allergies PCP: Dr. Catherine Review of Systems Review of Systems General: patient denies fever, fatigue, weaknes, sweating, any recent changes in appetite and weight HEENT: No headaches, visiual changes, hearing loss, tinnitus, nasal congestion and discharge, and sore throat. Cardiovascular: Denies chest pain, palpitations, dyspnea on exertion, orthopnea, or claudication. Respiratory: No cough, and wheezing. Gastrointestinal: Denies nausea, vomiting, dysphagia, odynophagia, heartburn, abdominal pain, flatulence, bloating, diarrhea, constipation, change in stool, or blood in stool. Genitourinary: No dysuria, hematuria, discharge, frequency, urgency, nocturia, incontinence, and urinary retention. Endocrine: No heat or cold intolerance, polydipsia, polyuria, and polyphagia. Neurological: No dizziness, extremity weakness and numbness, tremors, gait disturbance, seizures, and memory impairment. Psychiatric: Denies depression, anxiety,or insomnia. Musculoskeletal: Denies neck pain, stiffness and swelling, back pain, muscle weakness, joint pain, stiffness, swelling, or limited range of motion. Skin: No rashes, itching, skin lesion, changes in hair, nail, skin texture and breast. Hematologic/Lymphatic: Denies easy bruising, bleeding tendencies, or lymph node enlargement. Allergies: Coded Allergies: NO KNOWN ALLERGIES (Unverified , 07/31/24) Medications Current Medications Medications Dose Ordered Sig/Christen Route Start Time Stop Time Status Last Admin Dose Admin Sodium Chloride 1,000 ml @ 120 mls/hr Q8H20M IV 06/04/25 23:00 06/04/25 23:00 120 MLS/HR Acetaminophen 325 mg Q4HP PRN PO 06/04/25 23:00 Acetaminophen/ Hydrocodone Bitart 1 tab Q4HP PRN PO 06/04/25 23:00 06/05/25 00:40 1 TAB Ondansetron HCl 4 mg Q4HP PRN IV 06/04/25 23:00 Docusate Sodium 100 mg BIDPRN PRN PO 06/04/25 23:00 Exam Vital Signs Vital Signs Date Time Temp Pulse Resp B/P (MAP) Pulse Ox O2 Delivery O2 Flow Rate FiO2 06/05/25 01:00 98.7 69 18 128/65 (86) 94 98.7 06/04/25 16:16 Room Air* 0 21 Exam General Appearance: Alert, Oriented X3, Cooperative, No acute distress HEENT: Atraumatic, PERRLA, EOMI, Mucous membrane moist/pink Respiratory: Clear to auscultation, Normal air movement Cardiovascular: Regular rate, Normal S1, Normal S2, No murmurs, no chest wall tenderness Abdominal: Normal bowel sounds, Soft, No tenderness, No hepatospenomegaly, No masses Extremities: No clubbing, No cyanosis, No edema, Normal pulses, No tenderness/swelling Skin: No rashes, No breakdown, No significant lesion Neuro: Normal gait, Normal speech, Strength at 5/5 X4 ext, Normal tone, Sensation intact, Cranial nerves 3-12 NL, Reflexes 2+ Psych/Mental Status: Mental status NL, Mood NL Labs/Xrays Labs Test 06/04/25 23:26 06/04/25 23:07 06/04/25 18:28 06/04/25 16:05 Range/Units Sodium Level 141 # 136-145 mmol/L Potassium Level 4.1 3.5-5.1 mmol/L Chloride Level 107 98-107 mmol/L Carbon Dioxide Level 24 20-31 mmol/L Anion Gap 10 5-15 Blood Urea Nitrogen < 5 L 9-23 mg/dL Creatinine 1.00 0.700-1.30 mg/dL Glomerular Filtration Rate Calc 86 >90 mL/min BUN/Creatinine Ratio 5.0 L 10.0-20.0 Serum Glucose 230 #H 74-106 mg/dL Calcium Level 9.4 8.7-10.4 mg/dL Total Bilirubin 1.4 H 0.2-1.0 mg/dL Aspartate Amino Transferase (AST) 17 13-40 U/L Alanine Aminotransferase (ALT) 20 7-40 U/L Alkaline Phosphatase 162 H 46-116 U/L Total Protein 8.0 5.7-8.2 g/dL Albumin 4.4 3.2-4.8 g/dL POC Glucose 235 H 70-106 mg/dl Troponin I High Sensitivity 3 L </=54 ng/L Urine Color Colorless Yellow Urine Clarity Clear Clear Urine pH 6.0 5.0-9.0 Urine Specific [place] 1.022 1.001-1.035 Urine Protein Negative Negative Urine Ketones Negative Negative Urine Blood Negative Negative /uL Urine Nitrite Negative Negative Urine Bilirubin Negative Negative Urine Urobilinogen Normal Negative mg/dL Urine Leukocyte Esterase Negative Negative /uL Urine RBC <1 0 - 3 /hpf Urine Microscopic WBC < 1 0-3 /HPF Urine Squamous Epithelial Cells None seen <5 /hpf Urine Bacteria None seen None Seen /hpf Urine Glucose 4+ H Normal mg/dL Test 06/04/25 15:27 Range/Units White Blood Count 8.9 4.4-10.8 10^3/uL Red Blood Count 4.78 4.5-5.90 10^6/uL Hemoglobin 13.3 L 13.5-17.5 g/dL Hematocrit 40.2 L 41.0-53.0 % Mean Corpuscular Volume 84.1 80.0-100.0 fL Mean Corpuscular Hemoglobin 27.8 L 28.0-32.0 pg Mean Corpuscular Hemoglobin Concent 33.0 32.0-36.0 g/dL Red Cell Distribution Width 17.8 H 11.8-14.3 % Platelet Count 323 140-450 10^3/uL Mean Platelet Volume 8.9 6.9-10.8 fL Neutrophils (%) (Auto) 54.2 37.0-80.0 % Lymphocytes (%) (Auto) 36.6 10.0-50.0 % Monocytes (%) (Auto) 5.7 0.0-12.0 % Eosinophils (%) (Auto) 2.6 0.0-7.0 % Basophils (%) (Auto) 0.9 0.0-2.0 % Neutrophils # (Auto) 4.8 1.6-8.6 10 ^3/uL Lymphocytes # (Auto) 3.3 0.4-5.4 10 ^3/uL Monocytes # (Auto) 0.5 0-1.3 10 ^3/uL Eosinophils # (Auto) 0.2 0-0.8 10 ^3/uL Basophils # (Auto) 0.1 0-0.2 10 ^3/uL Nucleated Red Blood Cells 0.2 % SEPSIS Sepsis Screen Date sepsis recognized/suspect: Jun 04, 2025 Time Sepsis recognized/suspect: 2021 Recent Procedure: No On Antibiotic Therapy: No Respiratory Rate >20: No Heart Rate >90: No Temp<36 C (96.8 F) or >38.3 C: No SBP <90 or MAP <65 mmHG: No New Acute Mental Status Change: No Is the patient on CPAP, BIPAP,: No Physician Orders Admit (06/04/25 22:52) Allergies (06/04/25 22:52) Code Status (06/04/25 22:52) Sodium Chloride 0.9% (06/04/25 23:00) Acetaminophen Tablet (Tylenol Tablet) (06/04/25 23:00) Hydrocodone-Acet 5/325mg Tab ([place] (06/04/25 23:00) Ondansetron Hcl (Zofran) (06/04/25 23:00) Docusate Sodium Capsule (Colace Capsule) (06/04/25 23:00) Complete Blood Count (06/05/25 04:00) Comprehensive Metabolic Panel (06/05/25 04:00) Condition: Fair (06/04/25 22:52) Blood Glucose Q2h (06/05/25 00:48) Glucose Blood (Accu-Chek Comfort Curve T (06/05/25 04:00) Insulin R (Human) (Insulin R) (06/05/25 04:00) Dextrose 50% Syringe (06/05/25 04:00) Atorvastatin (Lipitor) (06/05/25 22:00) Topiramate (Topamax) (06/05/25 10:00) Vital Signs Date Time Temp Pulse Resp B/P (MAP) Pulse Ox O2 Delivery O2 Flow Rate FiO2 06/05/25 01:00 98.7 69 18 128/65 (86) 94 98.7 06/04/25 23:58 98.7 69 18 128/65 (86) 94 98.7 06/04/25 22:05 97.6 63 18 125/64 (84) 95 97.6 06/04/25 20:22 97.8 67 12 121/76 (91) 95 97.8 Medications Medications Dose Ordered Sig/Christen Route Start Time Stop Time Status Last Admin Dose Admin Acetaminophen/ Hydrocodone Bitart 1 tab Q4HP PRN PO 06/04/25 23:00 06/05/25 00:40 1 TAB Sodium Chloride 1,000 ml @ 120 mls/hr Q8H20M IV 06/04/25 23:00 06/04/25 23:00 120 MLS/HR Assessment/Plan Assessment/Plan #Uncontrolled hyperglycemia to rule out hyperosmolar hyperglycemic state - IV insulin, IV fluids - monitor blood glucose levels. Target BG 140-180. #Medication noncompliance -patient counseled for 11 minutes on the importance of medication compliance and blood glucose monitoring at home #Normocytic anemia - follow CBC #History of chronic migraines - Continue topiramate #History of dyslipidemia - Continue Lipitor #History of venous insufficiency - Compression stockings at home #History of diabetic neuropathy - outpatient follow-up with PCP for numbness of little finger in the left hand #History of peripheral arterial disease #History of diabetic foot #History of sleep apnea #History of benign prostatic hyperplasia -Continue tamsulosin PUD prophylaxis: not needed DVT prophylaxis: brisk movement. Barriers to discharge: Medical diagnosis and managment in progress. Patient lives with self. Independent for ADL. PCP: Dr. Catherine Specialist Relevent To Admission: Nonrelevant Case discussed with Dr. Stafford. Code Status: Full Code. Complex patient care discussion needed. Spend total 31 minutes for bedside assessment, case discussion and management. Plan discussed with: Patient My Orders Orders - POLA ZHU Procedure Category Date Status Time Admit ADMIT 06/04/25 Transmitted 22:52 Allergies KRISTEL 06/04/25 In Process 22:52 Code Status CODE 06/04/25 Transmitted 22:52 Sodium Chloride 0.9% PHA 06/04/25 In Process 23:00 Acetaminophen Tablet PHA 06/04/25 In Process (Tylenol Tablet) 23:00 Hydrocodone-Acet PHA 06/04/25 In Process 5/325mg Tab ([place] 23:00 Ondansetron Hcl PHA 06/04/25 In Process (Zofran) 23:00 Docusate Sodium PHA 06/04/25 In Process Capsule (Colace 23:00 Complete Blood Count LAB 06/05/25 Logged 04:00 Comprehensive LAB 06/05/25 Logged Metabolic Panel 04:00 Condition: Fair KRISTEL 06/04/25 In Process 22:52 Blood Glucose Q2h KRISTEL 06/05/25 In Process 00:48 Glucose Blood PHA 06/05/25 In Process (Accu-Chek Comfort 04:00 Insulin R (Human) PHA 06/05/25 In Process (Insulin R) 04:00 Dextrose 50% Syringe PHA 06/05/25 In Process 04:00 Atorvastatin (Lipitor) PHA 06/05/25 In Process 22:00 Topiramate (Topamax) PHA 06/05/25 In Process 10:00 Date of Service: Jun 04, 2025 Billing Provider: MIKAYLA STAFFORD MD Common Visit Codes: [id number] INP/OBS CARE (HIGH) Secondary Visit Codes: [id number] CARE PLAN 30 MINUTES POLA ZHU Jun 05, 2025 04:22
[2025-06-05] MEDS: ACCU-CHEK COMFORT CURVE STRIP VI SCH (05:06)
[2025-06-05 07:43] LABS: Hematocrit 38.9 % (41.0-53.0); Hemoglobin 13.2 g/dL (13.5-17.5); Mean Corpuscular Hemoglobin 28.2 pg (28.0-32.0); Mean Corpuscular Volume 82.9 fL (80.0-100.0); Nucleated Red Blood Cells % 0.1 %
[2025-06-05 08:00] LABS: Alanine Aminotransferase 20 U/L (7-40); Albumin 3.8 g/dL (3.2-4.8); Anion Gap 10 (5-15); Calcium 9.0 mg/dL (8.7-10.4); Carbon Dioxide 25 mmol/L (20-31); Chloride 107 mmol/L (98-107); Potassium 3.6 mmol/L (3.5-5.1); Sodium 142 mmol/L (136-145); Total Protein 7.1 g/dL (5.7-8.2)
[2025-06-05 08:09] LABS: Alkaline Phosphatase 138 U/L (46-116); BUN/Creatinine Ratio 5.6 (10.0-20.0); Bilirubin, Total 1.5 mg/dL (0.2-1.0); Blood Urea Nitrogen < 5 mg/dL (9-23); Glucose 166 mg/dL (74-106)
[2025-06-05] MEDS: TOPIRAMATE 25 MG TAB PO SCH (10:00)
[2025-06-05] MEDS: ENOXAPARIN SOD 40 MG/0.4 ML SYRINGE SC SCH (10:00)
[2025-06-05 10:37] LABS: INR 1.03 (0.9-1.15); Partial Thromboplastin Time 28.5 SEC (24.5-34.5); Prothrombin Time 10.9 sec (9.3-11.8)
[2025-06-05 11:07] LABS: Magnesium 2.1 mg/dL (1.6-2.6)
[2025-06-05] MEDS: ONDANSETRON HCL 4 MG/2 ML VIAL IV PRN (13:48)
[2025-06-05] MEDS: PANTOPRAZOLE 40 MG/10 ML VIAL INJ IV SCH (13:48)
--- NOTE | 2025-06-05 14:24 | DVHPNRES ---
Progress Note Date Seen: Jun 05, 2025 Resident Creating Document: EDER OTERO RESIDENT Medical Necessity Reason Pt with a Central, PICC or Fol: No Subjective Review of Systems HPI on 06/05/2025 : Daniel Hernandez is a 59-year-old male with a past medical history of type 2 diabetes mellitus, diabetic neuropathy, diabetic foot ulcer with wound culture positive for Acinetobacter baumanii, obstructive sleep apnea with CPAP use for 25 years, chronic migraines on topiramate for prophylaxis, venous insufficiency with varicose veins presented to the ER, [facility] and diagnosed with severe hyperglycemia ranging 600s. The patient did not experience any symptoms, no increased thirst, no polyuria. 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 However he reports improvement in his vision as the blood sugar went down. The patient also was experiencing increasing shortness of breaths while lying down, which she experiences usually, he likes to keep his bed inclined 45 to feel better. He reports having severe headache, he believes the headache was triggered by fasting. He denies any chest pain, fever, abdominal pain, vomiting nausea or any other complaints today. Past medical history:type 2 diabetes mellitus, diabetic neuropathy, diabetic foot ulcer with wound culture positive for Acinetobacter baumanii, obstructive sleep apnea with CPAP use for 25 years, chronic migraines on topiramate for prophylaxis, venous insufficiency with varicose veins Past surgical history: Maxillomandibular advancement surgery due to obstructive sleep apnea, tonsillectomy Family history: Patient is adopted, can not provide family history Home medications: Hydrocodone, topiramate, empagliflozin Allergies: No known allergies PCP: Dr. Catherine Alcohol abuse: He used to drink 5-6 beers over the weekends, he needed drink to open his eyes in the morning, however he quit in 1990. Smokin pack years, Was a heavy smoker, stopped 30 years ago. Drugs: Never Code status: Full code Objective vital signs Vital Sign Date Time Temp Pulse Resp B/P (MAP) Pulse Ox O2 Delivery O2 Flow Rate FiO2 06/05/25 08:20 97.5 72 19 133/77 (95) 96 97.5 06/05/25 08:00 Room Air* 0 21 Total Intake and Output 06/04/25 06/04/25 06/05/25 15:00 23:00 07:00 Intake Total 400 ml Balance 400 ml medications Current Medications Medications Dose Ordered Sig/Christen Route Start Time Stop Time Status Last Admin Dose Admin Sodium Chloride 1,000 ml @ 120 mls/hr Q8H20M IV 06/04/25 23:00 06/04/25 23:00 120 MLS/HR Acetaminophen 325 mg Q4HP PRN PO 06/04/25 23:00 Acetaminophen/ Hydrocodone Bitart 1 tab Q4HP PRN PO 06/04/25 23:00 06/05/25 12:14 1 TAB Ondansetron HCl 4 mg Q4HP PRN IV 06/04/25 23:00 06/05/25 13:48 4 MG Docusate Sodium 100 mg BIDPRN PRN PO 06/04/25 23:00 Diagnostic Test (Pha) 1 strip IQ4HR 06/05/25 04:00 06/05/25 12:14 1 STRIP Insulin Human Regular IQ4HR SC 06/05/25 04:00 06/05/25 12:23 6 UNITS Dextrose 50 ml UD PRN IV 06/05/25 04:00 Atorvastatin Calcium 40 mg HS PO 06/05/25 22:00 Topiramate 25 mg DAILY PO 06/05/25 10:00 Enoxaparin Sodium 40 mg DAILY SC 06/05/25 10:00 Pantoprazole Sodium 40 mg DAILY IV 06/05/25 10:00 06/05/25 13:48 40 MG Insulin Human Lispro AC SC 06/05/25 17:00 UNV Insulin Glargine 21 units QAM SC 06/06/25 07:00 UNV Examination Pt is lying on bed General Appearance: Morbid obesity, Alert, Oriented X3, Cooperative, Mild distress HEENT: Atraumatic, Mucous membranes moist/pink Respiratory: Clear to auscultation, Normal air movement, No added sounds Cardiovascular: Regular rate, Normal S1, Normal S2, No murmurs Abdominal/ : Active bowel sounds, Soft, no distention, no tenderness Extremities: No edema, Normal pulses, No tenderness/swelling, varicose vein with stasis dermatitis Skin: No Significant rash, except past surgical scars Neuro: Normal speech, sensorimotor deficits none Psych/Mental Status: Mental status NL, Mood NL Nurse was there as marketing operations intern during examination laboratory and microbiology Laboratory Tests 06/05/25 06:34 Test 06/05/25 06:34 Range/Units Serum Glucose 166 H 74-106 mg/dL Labs and/or images reviewed: Labs reviewed by me, Image(s) reviewed by me Problem List/Assessment/Plan Problem List/Assessment/Plan Hyperglycemia with hypovolemia secondary to uncontrolled type 2 diabetes mellitus Hyperglycemia ruled out HHS Hyperglycemia ruled out DKA IV insulin initially, followed by moderate sliding scale insulin IV fluid Monitor blood glucose levels Obstructive sleep apnea Maxillomandibular advancement surgery Soft diet Continue CPAP BPH Tamsulosin Dyslipidemia Continue Lipitor Varicose veins Continue compression therapy admissions Peripheral artery disease History of Diabetic foot Follow up outpatient with PCP and Cardiology GI prophylaxis: Pantoprazole DVT prophylaxis: Lovenox Diet: Diabetic Goals of care discussed with the patient for more than 27 minutes: Full code status Case discussed with Dr. Cazares, patient and RN Plan discussed with: Patient, Other My Orders My Orders Orders - EDER OTERO RESIDENT Procedure Category Date Status Time Enoxaparin Sodium PHA 06/05/25 In Process (Lovenox) 10:00 Pantoprazole PHA 06/05/25 In Process (Protonix) 10:00 Date of Service: Jun 05, 2025 Billing Provider: CONCEPCION CAZARES MD Common Visit Codes: [id number] INP/OBS CARE(HIGH) EDER OTERO RESIDENT Jun 05, 2025 14:24 CONCEPCION CAZARES MD Jun 05, 2025 21:49
[2025-06-05] MEDS: INSULIN LANTUS (GLARGINE) 1 /0.01ml (100units/ml) SC ONE (14:30)
[2025-06-05] MEDS: TAMSULOSIN HYDROCHLORIDE 0.4 MG CAP PO ONE (15:28)
[2025-06-05] MEDS: INSULIN LISPRO (HUMAN) 100 UNITS/ML ML SC SCH ×2 (16:50→17:00)
[2025-06-05] MEDS: ATORVASTATIN 20 MG TAB PO SCH (21:27)
[2025-06-06] MEDS: ACETAMINOPHEN 325 MG TAB PO ONE (01:45)
[2025-06-06] MEDS: TOPIRAMATE 25 MG TAB PO ONE (01:45)
[2025-06-06] MEDS: ACETAMINOPHEN 325 MG TAB PO PRN (04:43)
[2025-06-06 05:00] VITALS: BP 109/72; PULSE 88; RESP 20; TEMP 97.8; O2SAT 95
[2025-06-06] MEDS: INSULIN LANTUS (GLARGINE) 1 /0.01ml (100units/ml) SC SCH (06:40)
[2025-06-06 08:20] VITALS: BP 125/72; PULSE 83; RESP 18; TEMP 97.6; O2SAT 94
[2025-06-06 08:36] LABS: Hematocrit 39.4 % (41.0-53.0); Hemoglobin 13.5 g/dL (13.5-17.5); Mean Corpuscular Hemoglobin 27.9 pg (28.0-32.0); Mean Corpuscular Volume 81.6 fL (80.0-100.0); Nucleated Red Blood Cells % 0.1 %
[2025-06-06 08:51] LABS: Chloride 105 mmol/L (98-107); Potassium 3.6 mmol/L (3.5-5.1); Sodium 140 mmol/L (136-145)
[2025-06-06 08:52] LABS: Anion Gap 11 (5-15); Carbon Dioxide 24 mmol/L (20-31)
[2025-06-06 08:53] LABS: Calcium 9.0 mg/dL (8.7-10.4)
[2025-06-06 09:02] LABS: BUN/Creatinine Ratio 5.6 (10.0-20.0); Blood Urea Nitrogen < 5 mg/dL (9-23); Glucose 147 mg/dL (74-106)
[2025-06-06] MEDS ORDERED: KETOROLAC TROMETH 30 MG/ML 1ML VIAL IV ONE (11:15)
[2025-06-06] MEDS ORDERED: INSLANTI SC (12:21)
[2025-06-06] MEDS ORDERED: INSU100I52 IJ (12:21)
[2025-06-06 12:30] VITALS: BP_SYST 107; BP_SYST 136; BP_DIAS 65; BP_DIAS 87; PULSE 71; PULSE 88; RESP 18; RESP 19; TEMP 97.7; TEMP 98; O2SAT 96; O2SAT 98
[2025-06-06 13:08] VITALS: TEMP 36.4
[2025-06-06 13:40] VITALS: BP 132/85; PULSE 87; RESP 17
[2025-06-06] MEDS: MORPHINE SULFATE INJ 2 MG/ml SYRG IV ONE (13:40)
[2025-06-06] MEDS ORDERED: TAMSULOSIN HYDROCHLORIDE 0.4 MG CAP PO SCH (18:00)
--- NOTE | 2025-06-06 21:49 | DVHDSRES ---
Discharge Summary Date of Admission Resident Creating Document: EDER OTERO Jun 04, 2025 at 22:52 Date of Discharge: Jun 06, 2025 Admitting Diagnosis Hyperglycemia with hypovolemia secondary to uncontrolled type 2 diabetes mellitus Labs/Diagnostic Data: Laboratory Results Test 06/06/25 11:12 06/06/25 07:39 06/05/25 10:40 06/05/25 06:34 POC Glucose 175 mg/dl (70-106) White Blood Count 8.5 10^3/uL (4.4-10.8) Red Blood Count 4.83 10^6/uL (4.5-5.90) Hemoglobin 13.5 g/dL (13.5-17.5) Hematocrit 39.4 % (41.0-53.0) Mean Corpuscular Volume 81.6 fL (80.0-100.0) Mean Corpuscular Hemoglobin 27.9 pg (28.0-32.0) Mean Corpuscular Hemoglobin Concent 34.2 g/dL (32.0-36.0) Red Cell Distribution Width 18.0 % (11.8-14.3) Platelet Count 282 10^3/uL (140-450) Mean Platelet Volume 9.1 fL (6.9-10.8) Neutrophils (%) (Auto) 62.2 % (37.0-80.0) Lymphocytes (%) (Auto) 29.3 % (10.0-50.0) Monocytes (%) (Auto) 5.3 % (0.0-12.0) Eosinophils (%) (Auto) 2.7 % (0.0-7.0) Basophils (%) (Auto) 0.5 % (0.0-2.0) Neutrophils # (Auto) 5.3 10 ^3/uL (1.6-8.6) Lymphocytes # (Auto) 2.5 10 ^3/uL (0.4-5.4) Monocytes # (Auto) 0.4 10 ^3/uL (0-1.3) Eosinophils # (Auto) 0.2 10 ^3/uL (0-0.8) Basophils # (Auto) 0 10 ^3/uL (0-0.2) Nucleated Red Blood Cells 0.1 % Sodium Level 140 mmol/L (136-145) Potassium Level 3.6 mmol/L (3.5-5.1) Chloride Level 105 mmol/L (98-107) Carbon Dioxide Level 24 mmol/L (20-31) Anion Gap 11 (5-15) Blood Urea Nitrogen < 5 mg/dL (9-23) Creatinine 0.90 mg/dL (0.700-1.30) Glomerular Filtration Rate Calc 98 mL/min (>90) BUN/Creatinine Ratio 5.6 (10.0-20.0) Serum Glucose 147 mg/dL (74-106) Calcium Level 9.0 mg/dL (8.7-10.4) Vitamin D 25-Hydroxy 63.1 ng/mL (30.0-100) Lactic Acid Level 1.1 mmol/L (0.4-2.0) Prothrombin Time 10.9 sec (9.3-11.8) Prothrombin Time INR 1.03 (0.9-1.15) Activated Partial Thromboplast Time 28.5 SEC (24.5-34.5) Hemoglobin A1c > 14.0 % A1C (<5.7) Serum Osmolality 300 mOsm/kg (278-298) Phosphorus Level 3.5 mg/dL (2.4-5.1) Magnesium Level 2.1 mg/dL (1.6-2.6) Total Bilirubin 1.5 mg/dL (0.2-1.0) Aspartate Amino Transferase (AST) 21 U/L (13-40) Alanine Aminotransferase (ALT) 20 U/L (7-40) Alkaline Phosphatase 138 U/L (46-116) Total Protein 7.1 g/dL (5.7-8.2) Albumin 3.8 g/dL (3.2-4.8) Beta-Hydroxybutyric Acid 0.702 mmol/L (< 0.4) Thyroid Stimulating Hormone (TSH) 0.82 uIU/mL (0.55-4.78) Test 06/04/25 18:28 06/04/25 16:05 Troponin I High Sensitivity 3 ng/L (</=54) Urine Color Colorless (Yellow) Urine Clarity Clear (Clear) Urine pH 6.0 (5.0-9.0) Urine Specific [place] 1.022 (1.001-1.035) Urine Protein Negative (Negative) Urine Ketones Negative (Negative) Urine Blood Negative /uL (Negative) Urine Nitrite Negative (Negative) Urine Bilirubin Negative (Negative) Urine Urobilinogen Normal mg/dL (Negative) Urine Leukocyte Esterase Negative /uL (Negative) Urine RBC <1 /hpf (0 - 3) Urine Microscopic WBC < 1 /HPF (0-3) Urine Squamous Epithelial Cells None seen /hpf (<5) Urine Bacteria None seen /hpf (None Seen) Urine Glucose 4+ mg/dL (Normal) Other Laboratory Tests 06/06/25 07:39 Brief Hx & Hospital Course: 59-year-old male with a past medical history of type 2 diabetes mellitus, diabetic neuropathy, diabetic foot ulcer with wound culture positive for Acinetobacter baumannii history 6 months ago, obstructive sleep apnea on CPAP for 25 years, and chronic migraines on topiramate, who presented to the ER sent from urgent care with severe hyperglycemia ranging in the 600s. The patient reported worsening blurry vision with occasional halos, headaches, dizziness, and fatigue, along with difficulty concentrating and shortness of breaths. Denies chest pain or abdominal pain. On admission blood glucose was markedly elevated, and he was diagnosed with simple hyperglycemia with hypovolemia ruling out DKA and HHS. He was started on IV fluids and treated with subcutaneous insulin therapy, moderate insulin sliding scale as well. His symptoms improved, and his blood sugar stabilized with treatment. Was advised to follow up with PCP, block splitter operator and pulmonology for JOSE treatment. The patient had acute migraine at drugs during the hospital admission, patient's home medication hydrocodone was not resolving the pain. His acute migraine attack was managed with IV Toradol and morphine. On the day of discharge, the patient was clinically stable, alert and oriented he was advised to continue CPAP therapy, monitor blood glucose regularly and follow up with endocrinology and primary care for ongoing diabetes and comorbidity management. He was also instructed to maintain compression therapy for varicose veins in adhere to prescribed medications including insulin, topiramate and tamsulosin for BPH. Pt is lying on bed General Appearance: Morbid obesity, Alert, Oriented X3, Cooperative, Mild distress HEENT: Atraumatic, Mucous membranes moist/pink Respiratory: Clear to auscultation, Normal air movement, No added sounds Cardiovascular: Regular rate, Normal S1, Normal S2, No murmurs Abdominal/ : Active bowel sounds, Soft, no distention, no tenderness Extremities: No edema, Normal pulses, No tenderness/swelling, varicose vein with stasis dermatitis Skin: No Significant rash, except past surgical scars Neuro: Normal speech, sensorimotor deficits none Psych/Mental Status: Mental status NL, Mood NL Nurse was there as customs manager during examination Operations or Procedures CXR: Normal Condition at Discharge: Stable Final Diagnosis/Problems List Simple hyperglycemia with type 2 diabetes Type 2 diabetes mellitus on insulin therapy - Uncontrolled (hemoglobin A1C >14%) Obstructive sleep apnea on CPAP Diabetic neuropathy Diabetic foot ulcer is intubated vomiting history Chronic migraines Dyslipidemia Varicose veins with stasis dermatitis Discharge Disposition: Home Discharge Instruct/Medications Diet: Consistent carbohydrate, Cardiac 2g Na,low cholest Activity: No Restrictions, As Tolerated Follow Up/Referral: Follow up with PCP in 1 week 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 Medications: As per EMR Scheduled Atorvastatin Calcium (Lipitor), 40 MG PO DAILY, (Reported) Gabapentin (Gabapentin), 1 CAP PO TID Hydrocodone-Acetaminophen (Hydrocodone/Acetaminophen 10-325 mg), 1 TAB PO BID, (Reported) Insulin Glargine (Lantus), 18 UNIT SC DAILY Insulin Lispro (Insulin Lispro), 6 UNIT IJ AC Metformin Hydrochloride (Metformin Hcl), 1,000 MG PO DAILY, (Reported) Propranolol Hcl (Inderal La), 160 MG PO DAILY, (Reported) Tamsulosin Hcl (Tamsulosin Hcl), 0.4 MG PO DAILY, (Reported) Topiramate (Topamax), 25 MG PO DAILY, (Reported) Scheduled PRN Hydrocodone-Acetaminophen (Hydrocodone Bitartrate/AC 5-325 mg), 1 TAB PO QID PRN Promethazine Hcl (Promethazine Hcl), 25 MG PO for NAUSEA / VOMITING, (Reported) Discontinued Medications Clindamycin Hcl (Clindamycin Hcl), 1 CAP PO TID Discharge Statement: "Patient was advised to return to the ER or call 911 if any headaches, dizziness, shortness of breath, chest pain, abdominal pain, bleeding, fevers, or worsening of medical condition. Patient was counseled about treatment plan, medications, possible side effects, patientverbalized understanding. All questions were answered to the best of my ability. This discharge took greater then 30 minutes in planning, reviewing documentation, counseling the patient, and discussing with other team members." ASSESSMENT ASSESSMENT Assessment Simple hyperglycemia with type 2 diabetes EDER OTERO RESIDENT Jun 06, 2025 21:49 KAYE TATE RESIDENT Jun 07, 2025 23:51
== END 2025-06-06 16:08 | disposition home or self-care (01) | DRG 639 ==
LOC: ER 14:54 → OVERFLOW 22:52 → WEST WING 23:49
PROVIDERS: ADMIT Student in an Organized Health Care Education/Training Program; ATTEND Student in an Organized Health Care Education/Training Program
DX: E11.65 Type 2 diabetes mellitus with hyperglycemia (principal); E11.621 Type 2 diabetes mellitus with foot ulcer; N40.0 Benign prostatic hyperplasia without lower urinary tract symptoms; E78.5 Hyperlipidemia, unspecified; E11.40 Type 2 diabetes mellitus with diabetic neuropathy, unspecified; G43.909 Migraine, unspecified, not intractable, without status migrainosus; D64.9 Anemia, unspecified; G47.33 Obstructive sleep apnea (adult) (pediatric); E86.1 Hypovolemia; I83.10 Varicose veins of unspecified lower extremity with inflammation; Z87.891 Personal history of nicotine dependence; Z79.4 Long term (current) use of insulin; Z91.148 Patient's other noncompliance with medication regimen for other reason
CPT/HCPCS: 36415; 71045; 80048; 80053; 81001; 82010; 82306; 82607; 82962; 83036; 83605; 83735; 83930; 84100; 84443; 84484; 85025; 85610; 85730; 96360; 99291; G0378; J1815; J2405; J2470

== ENCOUNTER 2025-06-17 01:05 | Emergency (ER) | payer OTHER ==
[~2025-06-17] VITALS: Ht 185.4 cm; Wt 68.2 kg
[~2025-06-17 01:05] MED LIST changes: -CLIN1CAP70 PO; +INSLANTI SC; +INSU100I52 IJ
--- NOTE | 2025-06-17 02:21 | ED.PDOC ---
GI ASSESSMENT HPI Comments This is a 59 year old male who presents to the ED with a chief complaint of general abdominal pain with the associated N/V/D since 2100 today after ETOH intoxification. Patient reports feeling similar symptoms before, when he was diagnosed with Sepsis. Patient denies any PMHX, SHX, or exposure to recent familial illness. Patient has no further complaints at this time and otherwise denies blood streaked stool, constipation, hematemesis, dysuria, fever, or chills. REVIEW OF SYSTEMS: General: No fever, no chills, no fatigue HEENT: No sore throat, no earache, no congestion, no neck pain. Cardiac: No chest pain. No palpitations. Lungs: No shortness of breath, no cough. GI: Positive nausea, positive vomiting, positive diarrhea, positive abdominal pain. no constipation : No dysuria, frequency, or urgency. Musculoskeletal: No joint pain , no joint swelling, no extremity edema. Skin: No rash, no itching. Neuro: No headache, dizziness, or weakness PHYSICAL EXAM: General: Awake, alert and oriented. No acute distress. Skin: Skin in warm, dry and intact. Appropriate color for ethnicity. HEENT: The head is normocephalic and atraumatic. Conjunctivae are clear without exudates or hemorrhage. Sclera is non-icteric. EOM are intact. No signs of nystagmus. Eyelids are normal in appearance without swelling or lesions. Oral m ucosa is pink and moist Neck: The neck is supple with painful range of motion. No JVD. Cardiac: Heart rate and rhythm are normal. No murmurs, gallops, or rubs are auscultated. Respiratory: No signs of respiratory distress. Lung sounds are clear in all lo bes bilaterally without rales, rhonchi, or wheezes. Abdominal: Positive General Abdominal Tenderness. Abdomen is soft, without d istention, guarding or rigidity. Bowel sounds are present and normoactive in all four quadrants. Extremities: Upper and lower extremities are atraumatic in appearance without deformity or edema. Neurological: The patient is awake, alert and oriented to person, place, and time with normal speech. Speech is clear. There is no facial asymmetry. Psychiatric: Appropriate mood and affect. Good judgement and insight. Chief Complaint: Abdominal Pain Time Seen by MD: 01:15 Reviewed Notes: Medications, Allergies Allergies: Coded Allergies: NO KNOWN ALLERGIES (Unverified , 07/31/24) Home Meds Active Scripts Insulin Lispro (Insulin Lispro) 100 Unit/Ml Inj, 6 UNIT IJ AC for 30 Days, #5 INJ Prov:KAYE TATE RESIDENT 06/06/25 Insulin Glargine (Lantus) 100 Unit/Ml Inj, 18 UNIT SC DAILY for 30 Days, #5 INJ Prov:KAYE TATE RESIDENT 06/06/25 Hydrocodone-Acetaminophen (Hydrocodone Bitartrate/AC 5-325 mg) 1 Tab Tab, 1 TAB PO QID PRN, #30 TAB Prov:ERROL MARTINEZ MD 09/02/24 Gabapentin (Gabapentin) 100 Mg Cap, 1 CAP PO TID, #90 CAP 2 Refills Prov:KETTY MERRITT RESIDENT 08/04/24 Reported Medications Tamsulosin Hcl (Tamsulosin Hcl) 0.4 Mg Cap, 0.4 MG PO DAILY, CAP 08/01/24 Promethazine Hcl (Promethazine Hcl) 25 Mg Tab, 25 MG PO PRN for NAUSEA / VOMITING, TAB 08/01/24 Hydrocodone-Acetaminophen (Hydrocodone/Acetaminophen 10-325 mg) 1 Tab Tab, 1 TAB PO BID, TAB 08/01/24 Topiramate (Topamax) 25 Mg Tab, 25 MG PO DAILY, TAB 08/01/24 Propranolol Hcl (Inderal La) 80 Mg Cap, 160 MG PO DAILY, CAP 08/01/24 Atorvastatin Calcium (Lipitor) 40 Mg Tab, 40 MG PO DAILY, TAB 08/01/24 Metformin Hydrochloride (Metformin Hcl) 1,000 Mg Tab, 1000 MG PO DAILY, TAB 08/01/24 Information Source: Patient Mode of Arrival: Ambulatory Timing: Hours Duration: Since onset Prehospital treatment: None Severity: Moderate Recent: Ingestion of ETOH Pain Location: Other (generic ) Associated sign and symptoms: Nausea, Vomiting, Diarrhea, Abdominal Pain Past Medical History PAST MEDICAL HISTORY: DM, High Lipids Surgical History: Denies all surgeries Family History Family History: Unknown Social History Smoker: Non-Smoker, Quit Greater Than 1 Year Alcohol: Heavy Drugs: Denies Drug Use Lives In: Home Was a procedure done? Was a procedure done?: No GI differential Dx Differential Diagnosis: Appendicitis, Cholecystitis, Constipation, Gastritis/PUD, Gastroenteritis, Dehydration, Electrolyte Imbalance, Food Poisoning, Bacterial, Parasitic, Viral Images Reviewed?: Images reviewed and evaluated by me Time of 1ST Reevaluation: 02:21 Reevaluation 1ST: Unchanged Patient Education/Counseling: Diagnosis, Treatment Family Education/Counseling: No Family Present Medical Screening: No EMC Exist At This Time Departure 1 Departure Disposition: 01 HOME / SELF CARE / HOMELESS Condition: Stable Discharged With: Self Critical Care Note Critical Care Time?: No Stability Stability form required: No Heart Score Heart Score: Heart Score Response (Comments) Value History N/A 0 EKG N/A 0 Age N/A 0 Risk Factors N/A 0 Troponin N/A 0 Total 0 I personally scribed for BHASKAR GURROLA MD ([email or web address]) on 06/17/25 at 02:21. Electronically submitted by Yomaira Conklin ([employer]). I personally scribed for BHASKAR GURROLA MD ([email or web address]) on 06/17/25 at 02:27. Electronically submitted by Yomaira Conklin ([employer]). BHASKAR GURROLA MD Jun 17, 2025 02:21
[2025-06-17] MEDS ORDERED: CEPH500C PO (09:28)
[2025-06-17 09:29] VITALS: BP 121/70; PULSE 75; RESP 18; TEMP 98.1; O2SAT 96
--- NOTE | 2025-06-17 09:38 | ED.PDOC ---
HPI Comments A 40 YEAR OLD MALE PRESENTS TO THE ED WITH COMPLAINT OF LACERATION. PATIENT REPORTS ON GETTING OUT OF THE SHOWER, STEPPING ON A RUG WHEN THE RUG SLIPPED FROM UNDER HIM GIVING HIM ANYMORE LACERATION TO HIS PINKY TOE ON THE LEFT EXTREMITY. BLEEDING IS CURRENTLY CONTROLLED. PATIENT DENIES FEVER, CHILLS, SHORTNESS OF BREATH, CHEST PAIN, ABDOMINAL PAIN, NAUSEA, VOMITING, HEADACHE, OR OTHER COMPLAINTS. NO OTHER SYMPTOMS OR MODIFYING FACTORS AT THIS TIME. PATIENT IS ALERT, ORIENTED X 4, AND HAS STEADY GAIT. Chief Complaint: Laceration Time Seen by MD: 09:15 Reviewed Notes: Nurses Notes, Medications, Allergies Allergies: Coded Allergies: NO KNOWN ALLERGIES (Unverified , 07/31/24) Home Meds Active Scripts Cephalexin Monohydrate (Cephalexin) 500 Mg Cap, 1 CAP PO QID, #32 CAP Prov:JENNIFER VITALE 06/17/25 Insulin Lispro (Insulin Lispro) 100 Unit/Ml Inj, 6 UNIT IJ AC for 30 Days, #5 INJ Prov:KAYE TATE RESIDENT 06/06/25 Insulin Glargine (Lantus) 100 Unit/Ml Inj, 18 UNIT SC DAILY for 30 Days, #5 INJ Prov:KAYE TATE RESIDENT 06/06/25 Hydrocodone-Acetaminophen (Hydrocodone Bitartrate/AC 5-325 mg) 1 Tab Tab, 1 TAB PO QID PRN, #30 TAB Prov:ERROL MARTINEZ MD 09/02/24 Gabapentin (Gabapentin) 100 Mg Cap, 1 CAP PO TID, #90 CAP 2 Refills Prov:KETTY MERRITT RESIDENT 08/04/24 Reported Medications Tamsulosin Hcl (Tamsulosin Hcl) 0.4 Mg Cap, 0.4 MG PO DAILY, CAP 08/01/24 Promethazine Hcl (Promethazine Hcl) 25 Mg Tab, 25 MG PO PRN for NAUSEA / VOMITING, TAB 08/01/24 Hydrocodone-Acetaminophen (Hydrocodone/Acetaminophen 10-325 mg) 1 Tab Tab, 1 TAB PO BID, TAB 08/01/24 Topiramate (Topamax) 25 Mg Tab, 25 MG PO DAILY, TAB 08/01/24 Propranolol Hcl (Inderal La) 80 Mg Cap, 160 MG PO DAILY, CAP 08/01/24 Atorvastatin Calcium (Lipitor) 40 Mg Tab, 40 MG PO DAILY, TAB 08/01/24 Metformin Hydrochloride (Metformin Hcl) 1,000 Mg Tab, 1000 MG PO DAILY, TAB 08/01/24 Information Source: Patient Mode of Arrival: Ambulatory Severity: Moderate Severity of Laceration: Controlled Bleeding Complexity: Simple Timing: Minutes Prehospital treatment: None Laceration Location: Foot, Digit #1 Mechanism: Fall Laceration Length (cm): 2 Depth of Injury: SQ Tendon Injury: 0% Capillary Refill: < 3 seconds Tender: Moderate Discharge: Bloody Associated Signs and Symptoms: None Past Medical History PAST MEDICAL HISTORY: DM, High Lipids Surgical History: Denies all surgeries Family History Family History: Reviewed,noncontributory to illness, Unknown Social History Smoker: Non-Smoker, Quit Greater Than 1 Year Alcohol: Heavy Drugs: Denies Drug Use Lives In: Home Constitutional: reports: others (LACERATION OF THE PINKY TOE OF THE LEFT LEG); denies: chills, diaphoresis, fatigue, fever, malaise, sweats, weakness EENTM: denies: blurred vision, double vision, ear bleeding, ear discharge, ear drainage, ear pain, ear ringing, eye pain, eye redness, hearing loss, mouth pain, mouth swelling, nasal discharge, nose bleeding, nose congestion, nose pain, photophobia, tearing, throat pain, throat swelling, voice changes, others Respiratory: denies: cough, hemoptysis, orthopnea, SOB at rest, shortness of breath, SOB with excertion, stridor, wheezing, others Cardiovascular: denies: chest pain, dizzy spells, diaphoresis, Dyspnea on exertion, edema, irregular heart beat, left arm pain, lightheadedness, palpitations, PND, syncope, others Gastrointestinal: denies: abdomen distended, abdominal pain, blood streaked bowels, constipated, diarrhea, dysphagia, difficulty swallowing, hematemesis, melena, nausea, poor appetite, poor fluid intake, rectal bleeding, rectal pain, vomiting, others Genitourinary: denies: burning, dysuria, flank pain, frequency, hematuria, incontinence, penile discharge, penile sore, pain, testicle pain, testicle swelling, urgency, others Neurological: denies: dizziness, fainting, headache, left sided numbness, left sided weakness, numbness, paresthesia, pre-existing deficit, right sided numbness, right sided weakness, seizure, speech problems, tingling, tremors, weakness, others Musculoskeletal: denies: back pain, gout, joint pain, joint swelling, muscle pain, muscle stiffness, neck pain, others Integumetry: reports: laceration (LEFT 5TH PLANTAR TOE. ); denies: bruises, change in color, change in hair/nails, dryness, lesions, lumps, rash, wounds, others Allergic/Immunocompromised: denies: Difficulty Healing, Frequent Infections, Hives, Itching, others Hematologic/Lymphatic: denies: anemia, blood clots, easy bleeding, easy bruising, swollen glands, others Endocrine: denies: excessive hunger, excessive sweating, excessive thirst, excessive urination, flushing, intolerance to cold, intolerance to heat, unexplained weight gain, unexplained weight loss, others Psychiatric: denies: anxiety, bipolar disorder, depression, hopeless, panic disorder, schizophrenia, sleepless, suicidal, others All Other Systems: Reviewed and Negative Physical Exam General Appearance: No Apparent Distress, Normal HEENT: Normal ENT Inspection, PERRL/EOMI, Pharynx Normal, TMs Normal Neck: Full Range of Motion, Non-Tender, Normal, Normal Inspection Respiratory: Chest Non-Tender, Lungs Clear, No Accessory Muscle Use, No Respiratory Distress, Normal Breath Sounds Cardiovascular: No Edema, No JVD, No Murmur, No Gallop, Normal Peripheral Pulses, Regular Rate/Rhythm Breast Exam: Deferred Gastrointestinal: No Organomegaly, Non Tender, No Pulsatile Mass, Normal Bowel Sounds, Soft Genitalia: Deferred Pelvic: Deferred Rectal: Deferred Extremities: No calf tenderness, Normal capillary refill, Normal range of motion, No pedal edema, Tender (WITH LACERATION ON LEFT PLANTER 5TH TOE, NO BONY TENDERNESS AND DEFORMITY. ) Musculoskeletal : Apperance: Normal Neurologic: Alert, bar captain II-XII nml as Tested, No Motor Deficits, Normal Affect, Normal Mood, No Sensory Deficits Cerebellar Function: Normal Reflexes: Normal Skin: Dry, Lacerations (2CM LACERATION ON LEFT 5TH PLANTAR TOE, NO BLEEDING AND SWELLING, NO FB SEEN, NEUROVASCULAR INTACT. ), Normal Color, Warm Peripheral Pulses: 2+ carotid (R), 2+ carotid (L), 2+ dorsalis pedis (R), 2+ dorsalis pedis (L) Lymphatic: No Adenopathy Was a procedure done? Was a procedure done?: Yes Sedation Sedation?: No Laceration Repair : Location LEFT 5TH PLANTER 5TH TOE Length 2CM Anesthetic: Lidocaine Laceration Repair Prep: Saline, Betadine, by Irrigation Laceration Repair Wound Comple: epidermis/dermis repair Laceration Repair: Number of sutures (5), SQ, Size (3-0), Nylon, Simple, Bacitracin, Gauze Informed consent obtained: No Risks, benefits, and alternati: Yes Images 1 - Differential diagnosis Generic Laceration: Laceration, Avulsion X-Ray, Labs, Meds, VS Vital Signs Date Time Temp Pulse Resp B/P (MAP) Pulse Ox O2 Delivery O2 Flow Rate FiO2 06/17/25 09:29 75 18 96 Room Air 06/17/25 09:29 98.1 75 18 121/70 (87) 96 98.1 06/17/25 01:05 98.0 89 18 143/73 94 98.0 X-Ray, Labs, Meds, VS Comment EXTERNAL MEDICAL RECORDS REVIEWED: [NONE] INDEPENDENT HISTORIANS: [NONE] SOCIAL DETERMINANTS OF HEALTH: [NONE] LABS ORDERED: NONE REVIEWED AND INTERPRETED RESULTS: NONE IMAGING ORDERED: NONE TREATMENTS ORDERED: LACERATION REPAIR PROCEDURES PERFORMED: LACERATION REPAIR CRITICAL CARE TIME: NONE I HAVE DISCUSSED THE PATIENT WITH THE ATTENDING PHYSICIAN [PHYSICIAN'S NAME] AND HE AGREES WITH THE PATIENT'S PLAN OF CARE AND DISPOSITION. BASED ON HISTORY OF PRESENT ILLNESS, AND PHYSICAL EXAM, PATIENT WILL BE DISCHARGED HOME. DISCUSSED PLAN FOR DISCHARGE HOME WITH RX [KEFLEX 500MG]. MEDICATION WARNINGS GIVEN. SHARED DECISION MAKING: DISCUSSED WITH PATIENT THAT THEIR WORKUP WAS NORMAL. PATIENT INSTRUCTED TO FOLLOW UP WITH PRIMARY CARE PROVIDER IN 1-2 DAYS FOR RE- EVALUATION OF SYMPTOMS. PATIENT VERBALIZES UNDERSTANDING TO RETURN TO ED FOR NEW OR WORSENING SYMPTOMS OR IF FOLLOW UP WITH PCP CANNOT BE OBTAINED. PATIENT FEELS COMFORTABLE GOING HOME AT THIS TIME. ALL QUESTIONS ADDRESSED AT TIME OF DISCHARGE. Time of 1ST Reevaluation: 09:48 Reevaluation 1ST: Improved Patient Education/Counseling: Diagnosis, Treatment, Prognosis Family Education/Counseling: Diagnosis, Treatment, No Family Present Medical Screening: No EMC Exist At This Time Departure 1 Departure Time of Disposition: 09:48 Impression: Primary Impression: Laceration of fifth toe of left foot Qualified Codes: S91.115A - Laceration without foreign body of left lesser toe(s) without damage to nail, initial encounter Disposition: HOME / SELF CARE / HOMELESS Condition: Stable Additional Instructions: FOLLOW-UP WITH PCP IN 1 TO 2 DAYS. TAKE MEDICATIONS PRESCRIBED. RETURN TO ED FOR ANY NEW OR WORSENING SYMPTOMS. e-Prescriptions Cephalexin Monohydrate (Cephalexin) 500 Mg Cap 1 CAP PO QID, #32 CAP Prov: JENNIFER VITALE 06/17/25 Discharged With: Self, Relative Critical Care Note Critical Care Time?: No Stability Stability form required: No I personally scribed for JENNIFER VITALE ([email or web address]) on 06/17/25 at 09:38. Electronically submitted by Carrington Draper ([email or web address]). JENNIFER VITALE Jun 17, 2025 09:38
== END 2025-06-17 09:31 | disposition home or self-care (01) ==
LOC: ER 02:18
DX: S91.115A Laceration without foreign body of left lesser toe(s) without damage to nail, initial encounter (principal); E11.9 Type 2 diabetes mellitus without complications; E78.5 Hyperlipidemia, unspecified; F10.90 Alcohol use, unspecified, uncomplicated; Z87.891 Personal history of nicotine dependence; Z79.899 Other long term (current) drug therapy; Z79.891 Long term (current) use of opiate analgesic; Z79.84 Long term (current) use of oral hypoglycemic drugs; Z79.4 Long term (current) use of insulin; W01.0XXA Fall on same level from slipping, tripping and stumbling without subsequent striking against object, initial encounter; Y93.89 Activity, other specified; Y92.89 Other specified places as the place of occurrence of the external cause; Y99.8 Other external cause status
CPT/HCPCS: 12001